=== PATIENT | male | born 1975 | race Caucasian/White ===

== ENCOUNTER 2024-03-22 13:14 | Inpatient (IN) | payer MEDICAID, SELFPAY ==
[2024-03-22 13:17] VITALS: BP 132/90; PULSE 85; RESP 18; TEMP 36.4; O2SAT 98; BMI 31.1
--- NOTE | 2024-03-22 14:04 | EKG12_ITS ---
Test Reason : ANXIETY Blood Pressure : */* mmHG Vent. Rate : 77 BPM Atrial Rate : 77 BPM P-R Int : 158 ms QRS Dur : 138 ms QT Int : 406 ms P-R-T Axes : 52 11 18 degrees QTcB Int : 459 ms Normal sinus rhythm Right bundle branch block Abnormal ECG Confirmed by Chris Momin ([id number]), newspaper copy editor GISELLE BOLIVAR ([id number]) on 03/24/2024 10:59:37 AM Referred By: Confirmed By: Chris Momin
--- NOTE | 2024-03-22 14:14 | EX.ED.DYSGE1 ---
HPI History of Present Illness Chief Complaint: General Illness Narrative Narrative: Patient is a 48-year-old male with past medical history of hypercholesteremia, GERD, asthma who presents to the emergency department with a chief complaint of difficulty swallowing. According to the patient and for member bedside they note that he lives in [facility] and on he went to orange picker a 50 pound cat litter bag and states that he is normally able to do so but was unable to do this at that point in time. He states that later in the day he went to an urgent care/emergency department down the area and they gave him a Z-Alberto and steroids for his asthma. They state that ever since then he has had difficulty swallowing including the even water. He they state that he is able to do so but is difficult and he has to take very small sips and small bites of food. Patient denies any blood thinning medications denies any cardiac history denies any strokes. [facility] Medical History (Updated 03/22/24 @ 16:[address] Richard Cifuentes DO) Anxiety Non-smoker Asthma Migraines Depression Home Medications ?Medication ?Instructions ?Recorded ?Last Taken ?Type cetirizine 10 mg tablet (Allergy 10 mg PO DAILY 03/22/24 Unknown History Relief (cetirizine)) citalopram 20 mg tablet 20 mg PO DAILY 03/22/24 Unknown History esomeprazole magnesium 20 mg 20 mg PO BID 03/22/24 Unknown History capsule,delayed release (Nexium 24HR) fluticasone propionate 50 2 spray intranasal DAILY 03/22/24 Unknown History mcg/actuation nasal spray,suspension meloxicam 7.5 mg tablet 7.5 mg PO DAILY 03/22/24 Unknown History methylprednisolone 4 mg tablets in 4 mg PO DAILY 03/22/24 Unknown History a dose pack mometasone-formoterol HFA 100 2 puff inhalation BID 03/22/24 Unknown History mcg-5 mcg/actuation aerosol inhaler (Dulera) simvastatin 40 mg tablet 40 mg PO DAILY 03/22/24 Unknown History Allergy/AdvReac Type Severity Reaction Status Date / Time acetaminophen (From Tylenol) Allergy Other Verified 03/22/24 13:17 Social History Smoking Status: Unknown if ever smoked ROS ROS ED ROS Narrative Constitutional: Denies any headaches, fevers, chills, lightness, dizziness Eyes, ears, nose, throat: Complains of difficulty swallowing as noted above denies change in vision double vision blurry vision Cardiovascular: Denies chest pain or palpitations Respiratory: Denies coughing wheezing shortness of breath Abdomen: Denies abdominal pain nausea vomit diarrhea : Denies any urinary symptoms Neurological: Complains of weakness and numbness Musculoskeletal: Denies back pain Skin: Denies rashes or lesions EXAM Physical Exam Narrative Exam Narrative: General: Patient lying in bed rest comfortably did not appear to be acute distress Head: Atraumatic, normocephalic Eyes: PERRL bilateral, EOMI bilateral, no conjunctival injection noted Neck: Soft, supple, trachea midline Cardiovascular: Regular rate and rhythm no murmurs gallops rubs noted Respiratory: Clear to auscultation bilaterally no rales rhonchi or wheezes noted Abdomen: Soft, nondistended, nontender to palpation, bowel sounds present x 4 Extremities: +5/5 strength noted in the bilateral upper extremities, +4/5 strength noted in the bilateral lower extremities, no pedal edema on exam, radial pulses +2/4 in the bilateral upper extremities Neurological: Patient following commands knew that he was at the hospital and the year is 2023. NIH of 0 GCS 15 Skin: Warm, dry, intact Const Vital Signs: 03/22/24 13:17 03/22/24 15:20 03/22/24 15:56 Temperature 97.6 F L 98.6 F Temperature Source Oral Pulse Rate 85 78 84 Respiratory Rate 18 18 14 Blood Pressure 132/90 H 137/85 H 140/88 H Blood Pressure Mean 104 102 105 Pulse Ox 98 99 99 Oxygen Delivery Method Room Air Room Air MDM MDM MDM Narrative Medical decision making narrative: Patient is a 48-year-old male who presents to the emergency department chief complaint of difficulty swallowing. Patient will have a workup performed here on the differential diagnose includes but not limited to ischemic stroke, esophageal web, esophageal stricture although feel these are less likely as he has not had any difficulty with food intake prior to this past week. Patient is not a tenecteplase candidate nor a LVO candidate as his symptoms started on Which was 03/17/2024. Once workup is obtained reviewed he will be reevaluated. Patient CBC was significant for leukocytosis of 17,000, this could be reactive secondary to him currently being on steroids, hemoglobin of 16, platelet count was 491. Patient sodium was noted be normal at 136, potassium normal at 4.3, creatinine normal at 0.99. Patient's AST and ALT were 9 and 29 respectively, lipase normal at 47. Patient's chest x-ray reviewed by myself and by radiology which showed no acute cardiopulmonary abnormality. Patient CT head and brain without contrast showed no acute intracranial abnormality. Patient's EKG was reviewed and independently interpreted by myself which showed sinus rhythm with a rate of 77 bpm and evidence of right bundle branch block no previous EKG to compare to. At this point time given the patient's difficulty with swallowing and his weakness he had on this past week do feel the patient will warrant admission to the hospital for further workup. I will discuss case with hospitalist for admission. After several conversations with the patient and family at bedside he is agreeable to staying here in the hospital. I reached back out to the hospitalist and discussed case with her and Dr. Major will accept the patient for admission. Patient will be given aspirin here in the emergency department. Patient was notified all question concerns answered bedside. Lab Data Labs: Laboratory Results - last 24 hr 03/22/24 03/22/24 14:20 15:40 WBC 17.2 H RBC 5.76 Hgb 16.0 Hct 48.7 MCV 84.5 MCH 27.8 MCHC 32.9 RDW Std Deviation 36.7 RDW Coeff of Jenny 12.1 Plt Count 491 H MPV 10.6 Immature Gran % (Auto) 0.600 Neut % (Auto) 78.4 H Lymph % (Auto) 14.2 L [place] % (Auto) 6.3 Eos % (Auto) 0.2 Baso % (Auto) 0.3 Absolute Neuts (auto) 13.5 H Absolute Lymphs (auto) 2.44 Nucleated RBC % 0 Sodium 136 Potassium 4.3 Chloride 103 Carbon Dioxide 28.0 Anion Gap 6 BUN 18 Creatinine 0.99 Estim Creat Clear Calc 85.16 Est GFR (MDRD) Af Amer 103 Est GFR (MDRD) Non-Af 85 BUN/Creatinine Ratio 18.1 Glucose 114 H Calcium 9.5 Total Bilirubin 0.60 AST 9 L ALT 29 Alkaline Phosphatase 115 Total Protein 7.9 Albumin 4.3 Globulin 3.6 Albumin/Globulin Ratio 1.2 Lipase 47 Urine Color Yellow Urine Clarity Sl. Cloudy Urine pH 6.5 Ur Specific [place] 1.015 Urine Protein 30 H Urine Glucose (UA) Normal Urine Ketones 5 H Urine Occult Blood Negative Urine Nitrite Negative Urine Bilirubin Negative Urine Urobilinogen 1 H Ur Leukocyte Esterase Negative Radiography Diagnostic Testing: Clinical Impression(s) from Imaging Studies Brain CT 03/22/24 14:45 IMPRESSION: No acute intracranial abnormality. Electronically Signed: Casey Mullins MD at 15:14 EST , Chest X-Ray 03/22/24 14:50 IMPRESSION: No acute cardiopulmonary abnormality. Electronically Signed: Casey Mullins MD at 15:15 EST , Discharge Plan Triage Chief Complaint: General Illness ED Provider: Richard Cifuentes Dx/Rx/DC Orders Clinical Impression: Dysphagia Prescriptions: No Action cetirizine [Allergy Relief (cetirizine)] 10 mg tablet 10 mg PO DAILY simvastatin 40 mg tablet 40 mg PO DAILY meloxicam 7.5 mg tablet 7.5 mg PO DAILY citalopram 20 mg tablet 20 mg PO DAILY methylprednisolone 4 mg tablets,dose pack 4 mg PO DAILY fluticasone propionate 50 mcg/actuation spray,suspension 2 spray INTRANASAL DAILY esomeprazole magnesium [Nexium 24HR] 20 mg capsule,delayed release(DR/EC) 20 mg PO BID Dulera 100-5 mcg/actuation HFA aerosol inhaler 2 puff INHALATION BID Primary Care Provider: Care Physician,No Primary Referrals: Care Physician,No Primary [Primary Care Provider] - Print Language: Uzbek Disposition Disposition: [facility]
[2024-03-22 14:29] LABS: Absolute Lymphocyte Count 2.44 X10^3/uL (0.83-4.51); Absolute Neutrophil Count 13.5 X10^3/uL (2.0-7.7); Basophil# 0.06 X10^3/uL; Basophil% 0.3 % (0-1); Eosinophil# 0.04 X10^3/uL; Eosinophils% 0.2 % (0-5); Hematocrit 48.7 % (40-54); Lymphocyte # 2.44 X10^3/ul (0.83-4.51); Lymphocyte % 14.2 % (19-41); Mean Corp Hgb Conc 32.9 g/dL (32-36); Mean Corpuscular Hgb 27.8 pg (27.0-32.0); Mean Corpuscular Volume 84.5 fL (80-94); Mean Platelet Vol. 10.6 fl (6.2-12.0); Monocyte# 1.08 X10^3/uL; Monocyte% 6.3 % (0-10); NRBC Flagged by Analyzer 0 % (0-5); Neutrophil # 13.51 X10^3/uL (2.7-7.7); Neutrophil % 78.4 % (47-70); Platelet Count 491 K/mm3 (150-450); RBC Distribution Width CV 12.1 % (11.6-14.6); RBC Distribution Width SD 36.7 fl (35.1-43.9); Red Blood Count 5.76 M/mm3 (4.6-6.2); White Blood Count 17.2 K/mm3 (4.4-11.0)
--- NOTE | 2024-03-22 14:36 | ED.RN ---
pt anxious for CT scan, got order for ativan and then pt refused.
--- NOTE | 2024-03-22 14:45 | CT_ITS ---
EXAM: CT HEAD WITHOUT INTRAVENOUS CONTRAST CLINICAL INDICATION: difficulty swallowing TECHNIQUE: Multiple axial images were obtained of the head without intravenous contrast. This CT exam was performed using one or more of the following dose reduction techniques: automated exposure control, adjustment of the mA and/or kV according to patient size, and/or use of iterative reconstruction technique. COMPARISON: No relevant prior studies available. FINDINGS: BRAIN AND EXTRA-AXIAL SPACES: Normal. Normal brain attenuation. No intra- or extra-axial hemorrhage. No acute infarct. No intracranial mass or mass effect. There is preservation of the garrido/white matter interface. Posterior fossa structures are unremarkable. Ventricles are appropriate for age. No hydrocephalus. Basal cisterns are patent. BONES/JOINTS: Normal calvarium. SINUSES: No acute sinusitis. MASTOID AIR CELLS: Normal. Clear. CT/Brain/Head without Contrast IMPRESSION: No acute intracranial abnormality. Electronically Signed: Casey Mullins MD at 15:14 EST ,
--- NOTE | 2024-03-22 14:50 | RAD_ITS ---
EXAM: XR CHEST, 2 VIEWS CLINICAL INDICATION: difficulty swallowing TECHNIQUE: Frontal and lateral views of the chest. COMPARISON: No relevant prior studies available. FINDINGS: LUNGS AND PLEURAL SPACES: Normal. No consolidation or edema. No pneumothorax. No effusion. HEART: Normal heart size. MEDIASTINUM: Calcified mediastinal lymph node. BONES/JOINTS: No acute abnormality. RAD/Chest PA and Lateral IMPRESSION: No acute cardiopulmonary abnormality. Electronically Signed: Casey Mullins MD at 15:15 EST ,
[2024-03-22 15:00] LABS: ALB/GLOB Ratio 1.2 RATIO (0.9-2.4); AST(SGOT) 9 U/L (15-37); Alanine Aminotransfer ALT/SGPT 29 U/L (16-61); Albumin, Serum 4.3 g/dL (3.2-5.0); Alkaline Phosphatase 115 U/L (45-117); Anion Gap 6 (5-15); BUN 18 mg/dL (7-18); BUN/Creat Ratio 18.1 RATIO (10-20); Calcium,Total 9.5 mg/dL (8.5-10.1); Chloride 103 mmol/L (98-107); Creatinine, Serum 0.99 mg/dL (0.70-1.30); EST Glomerular Filtration Rate 85 mL/min (>60); Est Glom Filt Rate - Afr Amer 103 mL/min (>60); Estimated Creatinine Clearance 85.16 ml/min; Globulin 3.6 g/dL (2.2-4.2); Glucose 114 mg/dL (74-106); Lipase 47 U/L (13-75); Potassium 4.3 mmol/L (3.5-5.1); Protein, Total 7.9 g/dL (6.4-8.2); Sodium Level 136 mmol/L (136-145)
[2024-03-22 15:20] VITALS: BP 137/85; PULSE 78; RESP 18; O2SAT 99
--- NOTE | 2024-03-22 15:27 | ED.RN ---
sister states pt not wanting to stay overnight. Informed physician who is now at bedside discussing with patient.
[2024-03-22] MEDS: 0.9% Normal Saline (1000mL) 1,000 ML 999 ML IV (15:36)
[2024-03-22 15:45] LABS: Squamous Epithelial Cells - UA 0 SEEN /hpf (0-5); White Blood Cells 0 SEEN /hpf (0-5)
[2024-03-22 15:56] VITALS: BP 140/88; PULSE 84; RESP 14; TEMP 37; O2SAT 99
[2024-03-22 15:58] LABS: Color, Urine Yellow (Yellow); Glucose, Dipstick Normal (Normal); Ketone-Dipstick 5 mg/dl (Negative); Leukocyte Esterase-Dipstick Negative /ul (Negative); Nitrite-Dipstick Negative (Negative); Occult Blood-Urine Negative /ul (Negative); Protein-Dipstick 30 mg/dl (Negative); Specific Gravity, Urine 1.015 (1.002-1.030); Urine Bilirubin Dipstick Negative (Negative); Urine Clarity Sl. Cloudy (Clear); Urine Urobilinogen 1 mg/dl (Normal); Urine pH 6.5 (5.0 - 8.0)
[2024-03-22 16:43] LABS: Bacteria 1+ /hpf (None Seen); Mucous, Urine RARE /hpf (<or=2+); Red Blood Cells-Urine 0-5 SEEN /hpf (0-5)
[2024-03-22] MEDS: Aspirin 325 MG Tablet PO (16:53)
--- NOTE | 2024-03-22 18:00 | PCM.HP.STD ---
HPI - General General Date of Admission: 03/22/24 Date of Service: 03/22/24 Chief Complaint: Generalized weakness, difficulty swallowing HPI Narrative DIANA SNELL, is a 48 M with history of depression and anxiety, GERD, asthma who presented [facility] ED 03/22/2024 due to difficulty swallowing and feeling weak all over. History primarily provided by family member at bedside as patient very vague also very slow to respond. Reportedly patient since beginning of last week has had difficulty swallowing and can barely eat or drink anything (both solids and liquids), has also been talking slowly per family member and has been weak all over. Last week patient went to shrimp picker a 50 pound bag of cat litter and he did so with 1 arm and threw it over the shoulder and then he felt pain in his shoulder, sometime after that is when he had worsening of his symptoms and he also has had some constipation. Patient was seen in the ED in [place] twice since that time and they thought that maybe he had an asthma exacerbation gave him a Medrol Dosepak and a Z-Alberto but this is changed out of the patient's symptoms. In the ED he had a white blood cell count of 17.2 but he is on steroids and workup otherwise thus far unremarkable however given patient's severe difficulty with swallowing impacting his ability to maintain nutrition hospitalist contacted for admission. Patient evaluated at bedside, patient does not have any focal complaints and reports he feels weak all over and also feels decreased sensation diffusely, verified multiple times that patient's complaints were not focal and generalized and they were indeed. Patient denies any fevers, he is not having any significant chest pain or significant shortness of breath, no productive cough. Is having some fatigue, difficulty swallowing with solids and liquids, constipation, feels like he has difficulty emptying his bladder but no burning on urination. Also is having some memory difficulty and this is all different from baseline. Patient did start a new depression pill on Thursday however symptoms started before this and did not seem to impact at this 1 where another per family member. Of note patient denies any tobacco, drug, alcohol use [facility] Medical History Anxiety Asthma Depression Migraines Non-smoker Home Medications ?Medication ?Instructions ?Recorded ?Last Taken ?Type cetirizine 10 mg tablet (Allergy 10 mg PO DAILY 03/22/24 Unknown History Relief (cetirizine)) citalopram 20 mg tablet 20 mg PO DAILY 03/22/24 Unknown History esomeprazole magnesium 20 mg 20 mg PO BID 03/22/24 Unknown History capsule,delayed release (Nexium 24HR) fluticasone propionate 50 2 spray intranasal DAILY 03/22/24 Unknown History mcg/actuation nasal spray,suspension meloxicam 7.5 mg tablet 7.5 mg PO DAILY 03/22/24 Unknown History methylprednisolone 4 mg tablets in 4 mg PO DAILY 03/22/24 Unknown History a dose pack mometasone-formoterol HFA 100 2 puff inhalation BID 03/22/24 Unknown History mcg-5 mcg/actuation aerosol inhaler (Dulera) simvastatin 40 mg tablet 40 mg PO DAILY 03/22/24 Unknown History Allergy/AdvReac Type Severity Reaction Status Date / Time acetaminophen (From Tylenol) Allergy Other Verified 03/22/24 13:17 Social History Smoking Status: Unknown if ever smoked ROS ROS Narrative General: Denies fever/chills, does feel fatigued HENT: No significant nasal congestion EYES: Some possible bilateral blurring over the vision over period of time Resp: No productive cough or significant shortness of breath Cardiac: Denies chest pain GI: Possibly some constipation, no vomiting : Feels there is some urinary hesitancy Extremity: Denies swelling MSK: Generalized weakness Neuro: Feels some decreased sensation all over his body Heme: Denies any bleeding or bruising Skin: Denies rashes Psychiatric: Does have depression and anxiety Vital Signs Vital Signs Vital Signs: 03/22/24 13:17 03/22/24 15:20 03/22/24 15:56 Temperature 97.6 F L 98.6 F Temperature Source Oral Pulse Rate 85 78 84 Respiratory Rate 18 18 14 Blood Pressure 132/90 H 137/85 H 140/88 H Blood Pressure Mean 104 102 105 Pulse Ox 98 99 99 Oxygen Delivery Method Room Air Room Air Weight Weight: 79.605 kg Body Mass Index (BMI) 31.1 Physical Exam Narrative General: Patient awake but slow to respond and does not always answer my question directly HEENT: Atraumatic, patient able to close eyes and raise eyebrows and talk and stick out tongue when asked to smile he said he cannot but he was able to move his mouth and it seemed this was more of a reluctance to do so Eyes: Anicteric, normal conjunctiva, extraocular movements grossly intact Neck: Supple Respiratory: Clear to auscultation bilaterally, normal respiratory effort Cardiovascular: Regular rate and rhythm GI: Soft, little bit tender in lower abdomen without rebound, guarding, rigidity Extremities: No edema Musculoskeletal: Moving all extremities, did have slight decrease strength on the right arm that he hurt when he was lifting cat litter but 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 Neuro: No overt focal neurological deficits however patient had difficulty participating in neuroexam, under shot on [id number] mildly bilaterally Skin: No rashes appreciated Psych: Attempts to be cooperative but slow to respond Results Lab / Micro Data 03/22/24 14:20 03/22/24 14:20 Labs: Laboratory Results - last 24 hr 03/22/24 14:20: WBC 17.2 H, RBC 5.76, Hgb 16.0, Hct 48.7, MCV 84.5, MCH 27.8, MCHC 32.9, RDW Std Deviation 36.7, RDW Coeff of Jenny 12.1, Plt Count 491 H, MPV 10.6, Immature Gran % (Auto) 0.600, Neut % (Auto) 78.4 H, Lymph % (Auto) 14.2 L, [place] % (Auto) 6.3, Eos % (Auto) 0.2, Baso % (Auto) 0.3, Absolute Neuts (auto) 13.5 H, Absolute Lymphs (auto) 2.44, Nucleated RBC % 0, Sodium 136, Potassium 4.3, Chloride 103, Carbon Dioxide 28.0, Anion Gap 6, BUN 18, Creatinine 0.99, Estim Creat Clear Calc 85.16, Est GFR (MDRD) Af Amer 103, Est GFR (MDRD) Non-Af 85, BUN/Creatinine Ratio 18.1, Glucose 114 H, Calcium 9.5, Total Bilirubin 0.60, AST 9 L, ALT 29, Alkaline Phosphatase 115, Total Protein 7.9, Albumin 4.3, Globulin 3.6, Albumin/Globulin Ratio 1.2, Lipase 47 03/22/24 15:40: Urine Color Yellow, Urine Clarity Sl. Cloudy, Urine pH 6.5, Ur Specific [place] 1.015, Urine Protein 30 H, Urine Glucose (UA) Normal, Urine Ketones 5 H, Urine Occult Blood Negative, Urine Nitrite Negative, Urine Bilirubin Negative, Urine Urobilinogen 1 H, Ur Leukocyte Esterase Negative, Urine RBC 0-5 SEEN, Urine WBC 0 SEEN, Ur Squamous Epith Cells 0 SEEN, Urine Bacteria 1+, Urine Mucus RARE Imaging Radiology Impression Brain CT 03/22/24 14:45 IMPRESSION: No acute intracranial abnormality. Electronically Signed: Casey Mullins MD at 15:14 EST Reading Location ID and State: [facility] / [place] Tel , Service support , Chest X-Ray 03/22/24 14:50 IMPRESSION: No acute cardiopulmonary abnormality. Electronically Signed: Casey Mullins MD at 15:15 EST , Assessment & Plan Assessment/Plan (1) Dysphagia: PLAN: Plan #Dysphagia -Unclear etiology, patient reports dysphagia to both solids and liquids and sister is significant concern for him being able to maintain his nutrition -N.p.o. -Speech eval -GI consult -Will change PPI to IV -Hold home meloxicam #Generalized weakness -Patient with generalized weakness and some decrease sensation throughout -Slight decreased strength in right arm but he reports that he hurt this when he lifted the 50 pound bag of cat litter but there is otherwise nothing focal on exam -Will check B12, magnesium, folate, TSH, thiamine -UA not overtly infectious, calcium within normal limits, patient not anemic -Vitally stable -Elevated white blood cell count suspected to be due to Medrol Dosepak the patient was put on for ?asthma however patient denies any current or previous symptoms -PT/OT -Given the fact the patient has complaints of generalized weakness and generalized decreased sensation suspect something more along the lines of metabolic cause of his symptoms and have much lower suspicion for CVA so hold off on MRI of head at this time #Urinary hesitance -Patient reports he has difficulty emptying his bladder -Will check postvoid to verify patient is not retaining urine # Asthma -Continue home inhalers # Leukocytosis -Patient has been on steroids suspect this is the cause -Patient does not have any other focal signs or symptoms that would point to an infectious cause #Depression/anxiety -Continue home medications #GERD -Changing PPI to IV #DVT ppx: Lovenox subcu Silvia Major MD Charges/Coding Visit Charges Inpatient E&M: 49124 Init Hosp L2
[2024-03-22 18:23] VITALS: BMI 30.1
--- NOTE | 2024-03-22 18:47 | CASEMGMT ---
Care Management Face to Face with patient for initial transition planning/care coordination assessment in the ED.? This bond writer introduced self and role at [facility]. Patient lying in bed, alert and oriented. Patient's sister, Yanique, was present at bedside. Patient gave permission to speak with his sister present, but patient was adamant about not wanting the door shut. Patient's sister helped answer questions due to stating that patient was having trouble talking/swallowing. Patient's sister also reported patient having trouble with hearing and patient lack of eating over the last few days. Admitting Diagnosis: weakness, difficulty swallowing Other diagnosis history: hypercholesteremia, asthma PCP: patient reported having a PCP, but he could not recall the name (patient is from out of the area, so no provider lists were given). Patient's sister reported patient does not often see his PCP. Specialists: none Preferred Pharmacy: [facility] Pharmacy Insurance: [employer] Prescription Benefit:?yes Living Will/HPOA: none. Patient's sister stated that patient is not old enough for one of those. SW educated that any age could use advance directives and the acute SW team could help patient if he changed his mind. LNOK: daughter, Rhiannon, and granddaughter. Living Arrangements: lives alone, single level home with steps to enter. Transportation: patient drives. DME: patient reports having grab bars and his father's cane. Patient's sister reports he does not use the cane, but has it for sentimental reasons. HHC: no current or past HHC. SNF/Rehab: no current or past SNF/rehab. Community Resources: none Behavioral Health History: patient reportedly has anxiety and depression. Patient reportedly takes medication, but does not see a counselor. Due to patient living out of the area, no provider list was given). Patient goals: Patient wishes to discharge home, but patient's sister states patient could go to her home should he need it. Patient has been visiting with his sister for the holiday. Patient states he has no further needs or concerns at this time. Disposition Plan: admission to acute; RN RENE/SW team to follow for discharge planning needs that may arise. Magdalene Elmore, ANALYSIS CONSULTANT, CHEESE SPECIALIST
[2024-03-22 20:02] VITALS: BP 136/84; PULSE 73; RESP 16; TEMP 36.8; O2SAT 96
[2024-03-22 20:40] LABS: Vitamin B12 342 pg/mL (211-911)
[2024-03-22 20:49] LABS: Ferritin 243 ng/mL (26-388); Iron 37 ug/dL (65-175); Iron Binding Capacity,Total 377 ug/dL (250-450); Magnesium 2.6 mg/dL (1.6-2.6); PERCENT IRON SATURATION 9.8 % (15.0-55.0)
[2024-03-22] MEDS: Pantoprazole Sodium 40 MG in 0.9% Normal Saline (100mL MB+) 100 ML 330 MG IV (21:34)
[2024-03-22] MEDS: 0.9% Normal Saline (500mL Bag) 500 ML 15 ML IV (21:35)
[2024-03-22] MEDS: 0.9% Saline Lock 10 ML Syringe IV (21:35)
[2024-03-23] VITALS (10 sets, daily range): BP systolic 130–139; BP diastolic 80–92; PULSE 71–88; RESP 12–18; TEMP 36.4–37; O2SAT 94–98
[2024-03-23] MEDS: Albuterol 2.5 MG/3 ML VIAL.NEB. INHALATION ×3 (07:40→19:49)
[2024-03-23] MEDS: Budesonide Respules 0.5 MG/2 ML AMPUL.NEB. INHALATION ×2 (07:40→19:49)
[2024-03-23 07:41] LABS: Absolute Lymphocyte Count 2.67 X10^3/uL (0.83-4.51); Absolute Neutrophil Count 9.2 X10^3/uL (2.0-7.7); Basophil# 0.08 X10^3/uL; Basophil% 0.6 % (0-1); Eosinophil# 0.11 X10^3/uL; Eosinophils% 0.8 % (0-5); Hematocrit 47.4 % (40-54); Hemoglobin 15.5 g/dL (13.0-16.5); Lymphocyte # 2.67 X10^3/ul (0.83-4.51); Lymphocyte % 20.2 % (19-41); Mean Corp Hgb Conc 32.7 g/dL (32-36); Mean Corpuscular Hgb 28.4 pg (27.0-32.0); Mean Platelet Vol. 11.6 fl (6.2-12.0); Monocyte% 8.3 % (0-10); NRBC Flagged by Analyzer 0 % (0-5); Neutrophil # 9.19 X10^3/uL (2.7-7.7); Neutrophil % 69.6 % (47-70); Platelet Count 452 K/mm3 (150-450); RBC Distribution Width CV 12.4 % (11.6-14.6); RBC Distribution Width SD 39.3 fl (35.1-43.9); Red Blood Count 5.45 M/mm3 (4.6-6.2); White Blood Count 13.2 K/mm3 (4.4-11.0)
[2024-03-23 08:29] LABS: ALB/GLOB Ratio 1.2 RATIO (0.9-2.4); AST(SGOT) 14 U/L (15-37); Alanine Aminotransfer ALT/SGPT 27 U/L (16-61); Albumin, Serum 3.9 g/dL (3.2-5.0); Alkaline Phosphatase 103 U/L (45-117); Anion Gap 7 (5-15); BUN 18 mg/dL (7-18); BUN/Creat Ratio 19.7 RATIO (10-20); Calcium,Total 9.2 mg/dL (8.5-10.1); Chloride 104 mmol/L (98-107); Creatinine, Serum 0.92 mg/dL (0.70-1.30); EST Glomerular Filtration Rate 94 mL/min (>60); Est Glom Filt Rate - Afr Amer 113 mL/min (>60); Estimated Creatinine Clearance 90.26 ml/min; Globulin 3.3 g/dL (2.2-4.2); Glucose 90 mg/dL (74-106); Protein, Total 7.2 g/dL (6.4-8.2); Sodium Level 136 mmol/L (136-145)
[2024-03-23] MEDS: Pantoprazole Sodium 40 MG in 0.9% Normal Saline (100mL MB+) 100 ML 330 MG IV ×2 (08:52→22:56)
[2024-03-23] MEDS: Enoxaparin 40 MG/0.4 ML Syringe SC (08:53)
[2024-03-23] MEDS: 0.9% Saline Lock 10 ML Syringe IV ×2 (08:53→22:56)
[2024-03-23] MEDS: Fluticasone 0.05% 1 SPRAY NASAL.SRY 2 SPRAY NASAL (08:54)
--- NOTE | 2024-03-23 09:02 | PCM.PN.HOSP ---
Reason for Visit Reason for Visit: Diagnoses Dysphagia, unspecified (03/22/24) Subjective Subjective Patient is a 48-year-old gentleman with history of learning disability who presented with progressive generalized weakness and difficulty swallowing Objective Data Objective Data Vital Signs: Vital Signs Temp Pulse Resp BP Pulse Ox O2 Del Method 98.6 F 84 13 137/89 H 97 Room Air 03/23/24 08:48 03/23/24 08:48 03/23/24 08:48 03/23/24 08:48 03/23/24 08:48 03/23/24 08:48 Oxygen Delivery Method Room Air Weight: 77.111 kg Body Mass Index (BMI) 30.1 Intake & Output: Intake and Output for Last 24 Hours 03/21/24 03/22/24 03/23/24 23:59 23:59 23:59 Intake Total 1120 / 1120 Output Total 650 / 650 Balance 470 / 470 Lab / Micro Data 03/23/24 05:12 03/23/24 05:12 Labs: Laboratory Results - last 24 hr 03/22/24 14:20: WBC 17.2 H, RBC 5.76, Hgb 16.0, Hct 48.7, MCV 84.5, MCH 27.8, MCHC 32.9, RDW Std Deviation 36.7, RDW Coeff of Jenny 12.1, Plt Count 491 H, MPV 10.6, Immature Gran % (Auto) 0.600, Neut % (Auto) 78.4 H, Lymph % (Auto) 14.2 L, [place] % (Auto) 6.3, Eos % (Auto) 0.2, Baso % (Auto) 0.3, Absolute Neuts (auto) 13.5 H, Absolute Lymphs (auto) 2.44, Nucleated RBC % 0, Sodium 136, Potassium 4.3, Chloride 103, Carbon Dioxide 28.0, Anion Gap 6, BUN 18, Creatinine 0.99, Estim Creat Clear Calc 85.16, Est GFR (MDRD) Af Amer 103, Est GFR (MDRD) Non-Af 85, BUN/Creatinine Ratio 18.1, Glucose 114 H, Calcium 9.5, Magnesium 2.6, Iron 37 L, TIBC 377, Iron Saturation 9.8 L, Ferritin 243, Total Bilirubin 0.60, AST 9 L, ALT 29, Alkaline Phosphatase 115, Total Protein 7.9, Albumin 4.3, Globulin 3.6, Albumin/Globulin Ratio 1.2, Lipase 47, Vitamin B12 342, Folate 16.10, TSH 1.750 03/22/24 15:40: Urine Color Yellow, Urine Clarity Sl. Cloudy, Urine pH 6.5, Ur Specific [place] 1.015, Urine Protein 30 H, Urine Glucose (UA) Normal, Urine Ketones 5 H, Urine Occult Blood Negative, Urine Nitrite Negative, Urine Bilirubin Negative, Urine Urobilinogen 1 H, Ur Leukocyte Esterase Negative, Urine RBC 0-5 SEEN, Urine WBC 0 SEEN, Ur Squamous Epith Cells 0 SEEN, Urine Bacteria 1+, Urine Mucus RARE 03/23/24 05:12: WBC 13.2 H, RBC 5.45, Hgb 15.5, Hct 47.4, MCV 87.0, MCH 28.4, MCHC 32.7, RDW Std Deviation 39.3, RDW Coeff of Jenny 12.4, Plt Count 452 H, MPV 11.6, Immature Gran % (Auto) 0.500, Neut % (Auto) 69.6, Lymph % (Auto) 20.2, [place] % (Auto) 8.3, Eos % (Auto) 0.8, Baso % (Auto) 0.6, Absolute Neuts (auto) 9.2 H, Absolute Lymphs (auto) 2.67, Nucleated RBC % 0, Sodium 136, Potassium 4.0, Chloride 104, Carbon Dioxide 25.0, Anion Gap 7, BUN 18, Creatinine 0.92, Estim Creat Clear Calc 90.26, Est GFR (MDRD) Af Amer 113, Est GFR (MDRD) Non-Af 94, BUN/Creatinine Ratio 19.7, Glucose 90, Calcium 9.2, Total Bilirubin 1.00, AST 14 L, ALT 27, Alkaline Phosphatase 103, Total Protein 7.2, Albumin 3.9, Globulin 3.3, Albumin/Globulin Ratio 1.2 Radiography Diagnostic Testing: Radiology Impression Brain CT 03/22/24 14:45 IMPRESSION: No acute intracranial abnormality. Electronically Signed: Casey Mullins MD at 15:14 EST , Chest X-Ray 03/22/24 14:50 IMPRESSION: No acute cardiopulmonary abnormality. Electronically Signed: Casey Mullins MD at 15:15 EST , Physical Exam Narrative GENERAL: Flat affect and slow to respond HEENT: Atraumatic; normocephalic EYES; Anicteric, Normal Conjunctiva NECK; supple, normal thyroid, RESPIRATORY: Diminished to auscultation CARDIOVASCULAR: Regular S1 S2, GI: soft, normoactive bowel sounds, : No Renal angle tenderness; EXTREMITIES: No edema, no clubbing, MUSCULOSKELETAL: no muscle wasting NEURO: Awake; no lateralizing signs. SKIN: No Rash PSYCH; Flat affect Assessment & Plan Assessment/Plan (1) Dysphagia: PLAN: Plan Patient is a 48-year-old gentleman with history of learning disability who presented with progressive generalized weakness and difficulty swallowing 1. Dysphagia ? To both solids and liquids. Patient has been admitted to regular nursing floor. Patient was kept n.p.o. after midnight started on PPI with consultation placed to both speech therapy as well as GI 2. GERD ? Patient is on PPI did continue 3. Generalized osteoarthritis ? Patient is on meloxicam held given his presentation 4. Mild intermittent asthma ? Currently not in exacerbation aerosol treatment as needed 5. Learning disability ? Patient has disability and is cared for by his sister at home 6. Leukocytosis ? No infectious etiology will monitor 7. Depression with anxiety Patient was on Zoloft recently switched to citalopram continue 8. DVT prophylaxis ? On enoxaparin Time spent in the patient's overall evaluation,decision-making process, review of diagnostic data, adjustment of management, discussion with other providers, nursing nursing and ancillary staff involved in patient's care documentation, 36 Minutes Charges/Coding Visit Charges Inpatient E&M: 67755 Subs Hosp L2
--- NOTE | 2024-03-23 12:48 | EX.PCM.CON.G ---
HPI Consult Data Date of Consult: 03/23/24 HPI Narrative Reason for Consultation: Dysphagia HPI Narrative: DIANA SNELL, is a48 M with history of depression and anxiety, GERD, asthma who presented [facility] ED 03/22/2024 due to difficulty swallowing and feeling weak all over. History primarily provided by family member at bedside as patient very vague also very slow to respond. Reportedly patient since beginning of last week has had difficulty swallowing and can barely eat or drink anything (both solids and liquids), has also been talking slowly per family member and has been weak all over. Last week patient went to potato picker a 50 pound bag of cat litter and he did so with 1 arm and threw it over the shoulder and then he felt pain in his shoulder, sometime after that is when he had worsening of his symptoms and he also has had some constipation. Patient was seen in the ED in [place] twice since that time and they thought that maybe he had an asthma exacerbation gave him a Medrol Dosepak and a Z-Alberto but this is changed out of the patient's symptoms. In the ED he had a white blood cell count of 17.2 but he is on steroids and workup otherwise thus far unremarkable however given patient's severe difficulty with swallowing impacting his ability to maintain nutrition hospitalist contacted for admission. Patient denies any fevers, he is not having any significant chest pain or significant shortness of breath, no productive cough. He is having some fatigue, difficulty swallowing with solids and liquids, constipation, feels like he has difficulty emptying his bladder but no burning on urination. Also is having some memory difficulty and this is all different from baseline. Patient did start a new depression pill on Thursday however symptoms started before this and did not seem to impact at this 1 where another per family member. Of note patient denies any tobacco, drug, alcohol use [facility] Medical History Anxiety Non-smoker Asthma Migraines Depression Home Medications ?Medication ?Instructions ?Recorded ?Last Taken ?Type cetirizine 10 mg tablet (Allergy 10 mg PO DAILY 03/22/24 Unknown History Relief (cetirizine)) citalopram 20 mg tablet 20 mg PO DAILY 03/22/24 Unknown History esomeprazole magnesium 20 mg 20 mg PO BID 03/22/24 Unknown History capsule,delayed release (Nexium 24HR) fluticasone propionate 50 2 spray intranasal DAILY 03/22/24 Unknown History mcg/actuation nasal spray,suspension meloxicam 7.5 mg tablet 7.5 mg PO DAILY 03/22/24 Unknown History methylprednisolone 4 mg tablets in 4 mg PO DAILY 03/22/24 Unknown History a dose pack mometasone-formoterol HFA 100 2 puff inhalation BID 03/22/24 Unknown History mcg-5 mcg/actuation aerosol inhaler (Dulera) simvastatin 40 mg tablet 40 mg PO DAILY 03/22/24 Unknown History Allergy/AdvReac Type Severity Reaction Status Date / Time acetaminophen (From Tylenol) Allergy Other Verified 03/22/24 13:17 Social History Smoking Status: Unknown if ever smoked ROS ROS Narrative General: Denies fever/chills, does feel fatigued HENT: No significant nasal congestion EYES: Some possible bilateral blurring over the vision over period of time Resp: No productive cough or significant shortness of breath Cardiac: Denies chest pain GI: Possibly some constipation, no vomiting : Feels there is some urinary hesitancy Extremity: Denies swelling MSK: Generalized weakness Neuro: Feels some decreased sensation all over his body Heme: Denies any bleeding or bruising Skin: Denies rashes Psychiatric: Does have depression and anxiety Physical Exam Narrative GENERAL: Flat affect and slow to respond HEENT: Atraumatic; normocephalic EYES; Anicteric, Normal Conjunctiva NECK; supple, normal thyroid, RESPIRATORY: Diminished to auscultation CARDIOVASCULAR: Regular S1 S2, GI: soft, normoactive bowel sounds, : No Renal angle tenderness; EXTREMITIES: No edema, no clubbing, MUSCULOSKELETAL: no muscle wasting NEURO: Awake; no lateralizing signs. SKIN: No Rash PSYCH; Flat affect Medical Records Data Medical Nutrition Assessment Dietitian: Malnutrition Criteria Met Start: 03/23/24 16:45 Freq: Status: Active Protocol: Document 03/23/24 16:45 RMA (Rec: 03/23/24 16:45 RMA [id number]) Nutrition Malnutrition Evidence of Malnutrition Exists Yes Malnutrition (severe): Acute Illness/Injury Evidenced By Suboptimal Energy Intake ( Severe),Weight Loss (Severe) Intake Problem Inadequate Oral Intake Etiology related to swallowing difficulty and inadequate oral intake Signs/Symptoms as evidenced by ~8% unintentional weight loss Status Active Problem Clinical Problem Acute Disease or Injury Related Malnutrition Etiology severe protein-calorie malnutrition in the context of acute condition related to swallowing difficulty and inadequate oral intake Signs/Symptoms as evidenced by ~8% unintentional weight loss x 2- 3 months and PO meeting less than 50% estimated nutrition needs x 2 weeks Status Active Problem Recommendation Dietitian Recommendations/Changes Continue regular diet with consistency/texture as per TOBACCO WEIGHER . Will d/c ensure plus HP w/ medpass per pt preference. Will add 240mL ovalles ensure clear w/ breakfast for tolerance. Add ONS as pt willing once swallowing ability and oral intake better established. Lab / Micro Data 03/24/24 05:34 03/24/24 05:34 Labs: Laboratory Results - last 24 hr 03/24/24 05:34: WBC 13.8 H, RBC 5.67, Hgb 16.0, Hct 48.3, MCV 85.2, MCH 28.2, MCHC 33.1, RDW Std Deviation 37.3, RDW Coeff of Jenny 12.2, Plt Count 442, MPV 11.1, Immature Gran % (Auto) 0.600, Neut % (Auto) 71.3 H, Lymph % (Auto) 18.6 L, [place] % (Auto) 8.0, Eos % (Auto) 1.0, Baso % (Auto) 0.5, Absolute Neuts (auto) 9.8 H, Absolute Lymphs (auto) 2.56, Nucleated RBC % 0, Sodium 135 L, Potassium 4.2, Chloride 102, Carbon Dioxide 26.0, Anion Gap 7, BUN 17, Creatinine 0.92, Estim Creat Clear Calc 90.26, Est GFR (MDRD) Af Amer 113, Est GFR (MDRD) Non-Af 93, BUN/Creatinine Ratio 18.5, Glucose 104, Calcium 9.3, Phosphorus 4.4, Magnesium 2.6 Assessment & Plan Assessment/Plan (1) Dysphagia: PLAN: Plan 48-year-old with dysphagia of unclear etiology, patient reports dysphagia to both solids and liquids and sister is significant concern for him being able to maintain his nutrition speech eval is pending. We will perform an upper endoscopy to evaluate his upper GI tract. He was explained alternatives, risk and benefits collect any bleeding, function, sepsis, perforation, need for return to . He will have an ASA of 3. Charges/Coding Visit Charges Inpatient E&M: 34804 Init Hosp L3
--- NOTE | 2024-03-23 14:21 | NURSING ---
1410-PT OFF UNIT VIA BED FOR BARIUM SWALLOW. COUSIN W/PT
[2024-03-23] MEDS: Citalopram 20 MG Tablet PO (15:00)
--- NOTE | 2024-03-23 15:10 | SP.MBSS_ITS ---
Modified Barium Swallow Patient Information Study Date: 03/23/24 Study Time: 14:15 Diagnosis: Dysphagia R13.10 Referring Physician: Moi Cummins Current Diet Ordered: Puree / Thin liquids Dentition: Edentulous Mental Status: Impaired Respiratory Status: Oxygenating on Room Air Penetration-Aspiration Scale Penetration-Aspiration Scale: OBJECTIVE ASSESSMENT OF SWALLOW FUNCTION (QUANTITATIVE ? PER TRIAL): PENETRATION / ASPIRATION SCALE (SAWANT): 1 = does not enter airway 2 = enters airway/above vocal folds/ejected 3 = enters airway/above vocal folds/not ejected 4 = enters airway/contacts vocal folds/ejected 5 = enters airway/contacts vocal folds/not ejected 6 = enters airway/below vocal folds/ejected 7 = enters airway/below vocal folds/not ejected despite effort 8 = enters airway/below vocal folds/no effort VIDEOFLOROSCOPIC SCALE SCORE (SAWANT): Grade I = aspiration of material that has penetrated into the laryngeal vestibule, intact cough reflex Grade II = aspiration < 10 % of the bolus, intact cough reflex Grade III = aspiration of < 10 % of the bolus, reduced cough reflex or aspiration of > 10 % of the bolus, intact cough reflex Grade IV = aspiration of > 10 % of the bolus, reduced cough reflex Penetration-Aspiration Scale Score Thin Liquid via teaspoon: Result: 1= does not enter airway Thin Liquid via teaspoon Trial 2: Result: 2= enter airway/above vocal folds/ejected Thin Liquid via large single sip: cup: Result: 1= does not enter airway Diagnosis/Impression Diagnosis: Oropharyngeal dysphagia R13.12 Recommendations Diet: Mechanical Soft Textures (Minced and Moist textures - IDDSI Level 5) and Thin Liquids Comment: Meds crushed in applesauce Compensatory Strategies: Small Bites, Small Sips, Slow Rate, Alternate bites/solids and sips/liquids (1 sip after every 1-2 bites), Sitting upright and Remain sitting upright for 30 minutes after PO intake Supervision: 1:1 Close Supervision (Family ok to supervise if present) Recommended Referrals: GI Consult (Recommend proceed w/ GI consult (already placed)) Education Completed: 1. Described result of evaluation., 2. Pt understands evaluation & agrees with goals and treatment plan., 4. Family/caregivers understand evaluation & agree w/ goals & tx plan. and 7. Pt requires further edu cation on strategies & risks. Comment: CUTTING AND BONING SUPERVISOR messaged Dr. Cummins following MBSS to inform him of recommendations. In message, CUTTING AND BONING SUPERVISOR recommended consideration of neuro work up due to onset of dysphagia, slowed speech, confusion, and flat affect. Status Active ST Patient: Active Contact Information [facility] Speech Therapy:: Arleen Diaz M.A. [facility]-CUTTING AND BONING SUPERVISOR? Speech-Language Pathologist?? [facility] [address] [place] [address]? [email or web address]?? [phone]
--- NOTE | 2024-03-23 15:10 | ST.MBS ---
Modified Barium Swallow Patient Information Study Date: 03/23/24 Study Time: 14:15 Direct Billable Minutes: 120 Total Minutes procedure & reportin Diagnosis: Dysphagia R13.10 Referring Physician: Moi Cummins Reason for Referral: Objectively assess swallow function, assess risk for aspiration, and determine recommendations for least restrictive diet textures and compensatory strategies to improve safety of swallow. Medical History: PMH: GERD, Anxiety, Asthma, Depression, Migraines, Non-smoker. Pt presented to [facility] ED 03/22/24 w/ dysphagia and generalized weakness. Pt and family report that he is talking more slowly and is slow to respond. They reported ~1.5 weeks ago he went to fern picker a 50 pound bag of cat litter and he did so with 1 arm and threw it over the shoulder and then he felt pain in his shoulder, sometime after that is when he had worsening of his symptoms. He was referred for ST consult to further assess swallowing difficulty. BSE was completed today and recommended puree textures / thin liquids w/ plan for MBSS to further assess risk/presence of aspiration. Of note, pt had very slowed oral motor movements, flat affect, generalized weakness, weak volitional cough. He had coughing w/ liquids and was hesitant for trials of solids at bedside. See BSE for full details. Current Diet Ordered: Puree / Thin liquids Dentition: Edentulous Mental Status: Impaired Respiratory Status: Oxygenating on Room Air Penetration-Aspiration Scale Penetration-Aspiration Scale: OBJECTIVE ASSESSMENT OF SWALLOW FUNCTION (QUANTITATIVE ? PER TRIAL): PENETRATION / ASPIRATION SCALE (SAWANT): 1 = does not enter airway 2 = enters airway/above vocal folds/ejected 3 = enters airway/above vocal folds/not ejected 4 = enters airway/contacts vocal folds/ejected 5 = enters airway/contacts vocal folds/not ejected 6 = enters airway/below vocal folds/ejected 7 = enters airway/below vocal folds/not ejected despite effort 8 = enters airway/below vocal folds/no effort VIDEOFLOROSCOPIC SCALE SCORE (SAWANT): Grade I = aspiration of material that has penetrated into the laryngeal vestibule, intact cough reflex Grade II = aspiration < 10 % of the bolus, intact cough reflex Grade III = aspiration of < 10 % of the bolus, reduced cough reflex or aspiration of > 10 % of the bolus, intact cough reflex Grade IV = aspiration of > 10 % of the bolus, reduced cough reflex Penetration-Aspiration Scale Score Thin Liquid via teaspoon: Result: 1= does not enter airway Thin Liquid via teaspoon Trial 2: Result: 2= enter airway/above vocal folds/ejected Thin Liquid via large single sip: cup: Result: 1= does not enter airway Thin Liquid via sequential sips: cup: Result: 5= enters airways/contacts vocal folds/not ejected Comment: Esophageal screen - Complete clearance. [place] Thick Liquid via large single sip: cup: Result: 1= does not enter airway Pudding via teaspoon: Result: 1= does not enter airway Comment: Esophageal screen - Retention in the lower esophagus w/ retrograde flow. Thin Liquid via single sip: straw: Result: 1= does not enter airway Comment: Esophageal screen - Complete clearance. Peaches coated in barium pudding: Result: 1= does not enter airway Comment: E [employer]ERCE ARCHITECT cued pt to chew peaches (2 diced peaches provided) to mix w/ barium pudding. Pt swallowed each peach whole, 1 at a time, without chewing. 1/4 Cookie: Result: 1= does not enter airway Comment: Esophageal screen - Retention throughout middle and lower esophagus. Thin liquid wash was provided during esophageal screen, which fully cleared the retention. Oral Phase Labial Seal: No Labial Escape Tongue Control During Bolus Hold: Posterior escape of greater than half of bolus Bolus Preparation/Mastication: Minimal chewing/mashing with majority of bolus unchewed (peaches) Bolus Transport/Lingual Motion: Slowed tongue motion Oral Residue: Majority of bolus remaining (piecemeal deglutition of cookie) Pharyngeal Phase Initiation of Pharyngeal Swallow: Bolus head at posterior laryngeal surgace of epiglottis Soft Palate Elevation: Trace column of contrast/air between soft palate and pharyngeal wall Laryngeal Elevation: Partial superior movement thyroid cart/partial apprx aryt-epig petiole Anterior Hyoid Excursion: Partial anterior movement Epiglottic Movement: Complete inversion Laryngeal Vestibule Closure at Height of Swallow: Incomplete; narrow column of air/contrast in laryngeal vestibule Pharyngeal Stripping Wave: Present - complete Pharyngoesophageal Segment Opening: Complete distension and complete duration; no obstruction of flow Tongue Base Retraction: Trace column of contrast between tongue base & post. pharyngeal wall Pharyngeal Residue: Trace residue within or on pharyngeal structures Esophageal Phase Esophageal Clearance: Esophageal retention w/ retrograde flow below pharyngoesophageal seg. Diagnosis/Impression Diagnosis: Moderate oropharyngeal dysphagia R13.12; Esophageal dysphagia R13.14 Impression: The oral phase is primarily marked by... -No mastication of peaches despite cues to chew. He did chew cookie trial w/ mod verbal cues; however, small pieces of cookie appeared un-chewed. -Slowed tongue motion. -Piecemeal deglutition of pudding and cookie. -Decreased bolus control w/ posterior loss of >1/2 of liquids to the posterior surface of the epiglottis prior to swallow onset. The pharyngeal phase is primarily marked by... -Mildly delayed swallow onset. -Decreased airway closure during the swallow due to decreased laryngeal elevation and anterior hyoid excursion. -Laryngeal penetration of sequential sips of thin liquids to the vocal folds w/o full ejection and no reflexive cough. The patient may be at risk for silent aspiration. The esophageal phase is primarily marked by... -Retention of pudding in the lower esophagus w/ retrograde flow, which fully cleared w/ liquid wash. -Retention of cookie in middle and lower esophagus, which also cleared w/ liquid wash. Recommendations Diet: Mechanical Soft Textures (Minced and Moist textures - IDDSI Level 5) and Thin Liquids Comment: Meds crushed in applesauce Compensatory Strategies: Small Bites, Small Sips, Slow Rate, Alternate bites/solids and sips/liquids (1 sip after every 1-2 bites), Sitting upright and Remain sitting upright for 30 minutes after PO intake Supervision: 1:1 Close Supervision (Family ok to supervise if present) Recommend Repeat Modified Barium Swallow: TBD Need for Skilled Speech Therapy Services: Yes Comment: -Train the patient in use of strategies to decrease risk for aspiration and reflux aspiration. -Ongoing assessment of diet tolerance of recommended textures. Trial soft and bite size textures w/ E [employer]CE ARCHITECT in upcoming session to consider diet advancement if pt is demonstrating adequate mastication at bedside. -Train the patient in oropharyngeal exercise program to improve oral motor strength/coordination, as well as swallow onset and airway closure(lingual resistance/coordination exercises, Yogesh, CTAR). Recommended Referrals: GI Consult (Recommend proceed w/ GI consult (already placed)) Education Completed: 1. Described result of evaluation., 2. Pt understands evaluation & agrees with goals and treatment plan., 4. Family/caregivers understand evaluation & agree w/ goals & tx plan. and 7. Pt requires further education on strategies & risks. Comment: E COMMERCE ARCHITECT messaged Dr. Cummins following MBSS to inform him of recommendations. In message, E COMMERCE ARCHITECT recommended consideration of neuro work up due to dysphagia, slowed speech, confusion, and flat affect. Status Active ST Patient: Active Contact Information [facility] Speech Therapy:: Arleen Diaz M.A. CCC-E COMMERCE ARCHITECT? Speech-Language Pathologist?? [facility] [address] [place] [address]? [email or web address]?? [phone]
--- NOTE | 2024-03-23 18:28 | NURSING ---
pt c/o not feeling right, denies knowing his name, his sister, etc. cannot explain why or approx when this began. he thinks he became a little sob, and he felt something pop but cannot say where or when. dr matute notified and orders received.
--- NOTE | 2024-03-23 19:26 | NURSING ---
183-sister did come up to desk to let this nurse know that pt is now aware of who he is and she, she states that she thinks it was a panic attack
[2024-03-23] MEDS: Tamsulosin HCl 0.4 MG Capsule PO (22:50)
[2024-03-23] MEDS: MELATONIN 3 MG TABLET PO (22:52)
[2024-03-23] MEDS: Atorvastatin Calcium 20 MG Tablet PO (22:53)
[2024-03-24] VITALS (15 sets, daily range): BP systolic 97–140; BP diastolic 68–87; PULSE 74–94; RESP 12–18; TEMP 36.3–37.1; O2SAT 95–99
[2024-03-24 06:10] LABS: Absolute Lymphocyte Count 2.56 X10^3/uL (0.83-4.51); Absolute Neutrophil Count 9.8 X10^3/uL (2.0-7.7); Basophil# 0.07 X10^3/uL; Basophil% 0.5 % (0-1); Eosinophil# 0.14 X10^3/uL; Hematocrit 48.3 % (40-54); Lymphocyte # 2.56 X10^3/ul (0.83-4.51); Lymphocyte % 18.6 % (19-41); Mean Corp Hgb Conc 33.1 g/dL (32-36); Mean Corpuscular Hgb 28.2 pg (27.0-32.0); Mean Corpuscular Volume 85.2 fL (80-94); Mean Platelet Vol. 11.1 fl (6.2-12.0); NRBC Flagged by Analyzer 0 % (0-5); Neutrophil # 9.81 X10^3/uL (2.7-7.7); Neutrophil % 71.3 % (47-70); Platelet Count 442 K/mm3 (150-450); RBC Distribution Width CV 12.2 % (11.6-14.6); RBC Distribution Width SD 37.3 fl (35.1-43.9); Red Blood Count 5.67 M/mm3 (4.6-6.2); White Blood Count 13.8 K/mm3 (4.4-11.0)
[2024-03-24 06:48] LABS: Anion Gap 7 (5-15); BUN 17 mg/dL (7-18); BUN/Creat Ratio 18.5 RATIO (10-20); Calcium,Total 9.3 mg/dL (8.5-10.1); Chloride 102 mmol/L (98-107); Creatinine, Serum 0.92 mg/dL (0.70-1.30); EST Glomerular Filtration Rate 93 mL/min (>60); Est Glom Filt Rate - Afr Amer 113 mL/min (>60); Estimated Creatinine Clearance 90.26 ml/min; Glucose 104 mg/dL (74-106); Magnesium 2.6 mg/dL (1.6-2.6); Phosphorus 4.4 mg/dL (2.5-4.9); Potassium 4.2 mmol/L (3.5-5.1); Sodium Level 135 mmol/L (136-145)
--- NOTE | 2024-03-24 07:13 | CON.PCM.UR_ITS ---
HPI Consult Data Date of Consult: 03/24/24 HPI Narrative Reason for Consultation: Episode of urinary retention HPI Narrative: DIANA SNELL, is a 48 male who is in the hospital and while in the hospital he is having some difficulty with urination he was prescribed Flomax which is working better for him the nurses report he is able to urinate recommend continue with Flomax on discharge and he can follow-up with his primary care physician after discharge. [facility] Medical History (Updated 03/22/24 @ 16:[address] Richard Cifuentes, ) Anxiety Non-smoker Asthma Migraines Depression Home Medications ?Medication ?Instructions ?Recorded ?Last Taken ?Type cetirizine 10 mg tablet (Allergy 10 mg PO DAILY 03/22/24 Unknown History Relief (cetirizine)) citalopram 20 mg tablet 20 mg PO DAILY 03/22/24 Unknown History esomeprazole magnesium 20 mg 20 mg PO BID 03/22/24 Unknown History capsule,delayed release (Nexium 24HR) fluticasone propionate 50 2 spray intranasal DAILY 03/22/24 Unknown History mcg/actuation nasal spray,suspension meloxicam 7.5 mg tablet 7.5 mg PO DAILY 03/22/24 Unknown History methylprednisolone 4 mg tablets in 4 mg PO DAILY 03/22/24 Unknown History a dose pack mometasone-formoterol HFA 100 2 puff inhalation BID 03/22/24 Unknown History mcg-5 mcg/actuation aerosol inhaler (Dulera) simvastatin 40 mg tablet 40 mg PO DAILY 03/22/24 Unknown History Allergy/AdvReac Type Severity Reaction Status Date / Time acetaminophen (From Tylenol) Allergy Other Verified 03/22/24 13:17 Social History Smoking Status: Unknown if ever smoked Medical Records Data Medical Nutrition Assessment Dietitian: Malnutrition Criteria Met Start: 03/23/24 16:45 Freq: Status: Active Protocol: Document 03/23/24 16:45 RMA (Rec: 03/23/24 16:45 RMA [id number]) Nutrition Malnutrition Evidence of Malnutrition Exists Yes Malnutrition (severe): Acute Illness/Injury Evidenced By Suboptimal Energy Intake ( Severe),Weight Loss (Severe) Intake Problem Inadequate Oral Intake Etiology related to swallowing difficulty and inadequate oral intake Signs/Symptoms as evidenced by ~8% unintentional weight loss Status Active Problem Clinical Problem Acute Disease or Injury Related Malnutrition Etiology severe protein-calorie malnutrition in the context of acute condition related to swallowing difficulty and inadequate oral intake Signs/Symptoms as evidenced by ~8% unintentional weight loss x 2- 3 months and PO meeting less than 50% estimated nutrition needs x 2 weeks Status Active Problem Recommendation Dietitian Recommendations/Changes Continue regular diet with consistency/texture as per SAFETY NET MAKER . Will d/c ensure plus HP w/ medpass per pt preference. Will add 240mL ovalles ensure clear w/ breakfast for tolerance. Add ONS as pt willing once swallowing ability and oral intake better established. Lab / Micro Data 03/24/24 05:34 03/24/24 05:34 Labs: Laboratory Results - last 24 hr 03/23/24 05:12: WBC 13.2 H, RBC 5.45, Hgb 15.5, Hct 47.4, MCV 87.0, MCH 28.4, MCHC 32.7, RDW Std Deviation 39.3, RDW Coeff of Jenny 12.4, Plt Count 452 H, MPV 11.6, Immature Gran % (Auto) 0.500, Neut % (Auto) 69.6, Lymph % (Auto) 20.2, [place] % (Auto) 8.3, Eos % (Auto) 0.8, Baso % (Auto) 0.6, Absolute Neuts (auto) 9.2 H, Absolute Lymphs (auto) 2.67, Nucleated RBC % 0, Sodium 136, Potassium 4.0, Chloride 104, Carbon Dioxide 25.0, Anion Gap 7, BUN 18, Creatinine 0.92, Estim Creat Clear Calc 90.26, Est GFR (MDRD) Af Amer 113, Est GFR (MDRD) Non-Af 94, BUN/Creatinine Ratio 19.7, Glucose 90, Calcium 9.2, Total Bilirubin 1.00, A ST 14 L, ALT 27, Alkaline Phosphatase 103, Total Protein 7.2, Albumin 3.9, Globulin 3.3, Albumin/Globulin Ratio 1.2 03/24/24 05:34: WBC 13.8 H, RBC 5.67, Hgb 16.0, Hct 48.3, MCV 85.2, MCH 28.2, MCHC 33.1, RDW Std Deviation 37.3, RDW Coeff of Jenny 12.2, Plt Count 442, MPV 11.1, Immature Gran % (Auto) 0.600, Neut % (Auto) 71.3 H, Lymph % (Auto) 18.6 L, [place] % (Auto) 8.0, Eos % (Auto) 1.0, Baso % (Auto) 0.5, Absolute Neuts (auto) 9.8 H, Absolute Lymphs (auto) 2.56, Nucleated RBC % 0, Sodium 135 L, Potassium 4.2, Chloride 102, Carbon Dioxide 26.0, Anion Gap 7, BUN 17, Creatinine 0.92, Estim Creat Clear Calc 90.26, Est GFR (MDRD) Af Amer 113, Est GFR (MDRD) Non-Af 93, BUN/Creatinine Ratio 18.5, Glucose 104, Calcium 9.3, Phosphorus 4.4, Magnesium 2.6
[2024-03-24] MEDS: Albuterol 2.5 MG/3 ML VIAL.NEB. INHALATION (07:33)
[2024-03-24] MEDS: Budesonide Respules 0.5 MG/2 ML AMPUL.NEB. INHALATION ×2 (07:33→19:27)
[2024-03-24] MEDS: 0.9% Saline Lock 10 ML Syringe IV ×2 (08:25→21:50)
[2024-03-24] MEDS: Pantoprazole Sodium 40 MG in 0.9% Normal Saline (100mL MB+) 100 ML 330 MG IV ×2 (08:26→21:50)
[2024-03-24] MEDS: Fluticasone 0.05% 1 SPRAY NASAL.SRY 2 SPRAY NASAL (08:27)
--- NOTE | 2024-03-24 08:39 | PCM.PN.HOSP ---
Reason for Visit Reason for Visit: Diagnoses Dysphagia, unspecified (03/22/24) Subjective Subjective Patient underwent modified barium swallow and speech therapy recommended minced and moist discharge/thin liquids under direct supervision. Also recommended for GI consultation which has been placed on admission Objective Data Objective Data Vital Signs: Vital Signs Temp Pulse Resp BP Pulse Ox O2 Del Method 98.1 F 87 12 128/85 H 97 Room Air 03/24/24 08:21 03/24/24 08:21 03/24/24 08:21 03/24/24 08:21 03/24/24 08:21 03/24/24 08:21 Oxygen Delivery Method Room Air Weight: 77.11 kg Body Mass Index (BMI) 30.1 Intake & Output: Intake and Output for Last 24 Hours 03/22/24 03/23/24 03/24/24 23:59 23:59 23:59 Intake Total 1120 / 1120 280 / 280 473 / 473 Output Total 650 / 650 250 / 250 600 / 600 Balance 470 / 470 30 / 30 -127 / -127 Medical Nutrition Assessment Dietitian: Malnutrition Criteria Met Start: 03/23/24 16:45 Freq: Status: Active Protocol: Document 03/23/24 16:45 RMA (Rec: 03/23/24 16:45 RMA [id number]) Nutrition Malnutrition Evidence of Malnutrition Exists Yes Malnutrition (severe): Acute Illness/Injury Evidenced By Suboptimal Energy Intake ( Severe),Weight Loss (Severe) Intake Problem Inadequate Oral Intake Etiology related to swallowing difficulty and inadequate oral intake Signs/Symptoms as evidenced by ~8% unintentional weight loss Status Active Problem Clinical Problem Acute Disease or Injury Related Malnutrition Etiology severe protein-calorie malnutrition in the context of acute condition related to swallowing difficulty and inadequate oral intake Signs/Symptoms as evidenced by ~8% unintentional weight loss x 2- 3 months and PO meeting less than 50% estimated nutrition needs x 2 weeks Status Active Problem Recommendation Dietitian Recommendations/Changes Continue regular diet with consistency/texture as per WOOD 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 Will d/c ensure plus HP w/ medpass per pt preference. Will add 240mL ovalles ensure clear w/ breakfast for tolerance. Add ONS as pt willing once swallowing ability and oral intake better established. Lab / Micro Data 03/24/24 05:34 03/24/24 05:34 Labs: Laboratory Results - last 24 hr 03/24/24 05:34: WBC 13.8 H, RBC 5.67, Hgb 16.0, Hct 48.3, MCV 85.2, MCH 28.2, MCHC 33.1, RDW Std Deviation 37.3, RDW Coeff of Jenny 12.2, Plt Count 442, MPV 11.1, Immature Gran % (Auto) 0.600, Neut % (Auto) 71.3 H, Lymph % (Auto) 18.6 L, [place] % (Auto) 8.0, Eos % (Auto) 1.0, Baso % (Auto) 0.5, Absolute Neuts (auto) 9.8 H, Absolute Lymphs (auto) 2.56, Nucleated RBC % 0, Sodium 135 L, Potassium 4.2, Chloride 102, Carbon Dioxide 26.0, Anion Gap 7, BUN 17, Creatinine 0.92, Estim Creat Clear Calc 90.26, Est GFR (MDRD) Af Amer 113, Est GFR (MDRD) Non-Af 93, BUN/Creatinine Ratio 18.5, Glucose 104, Calcium 9.3, Phosphorus 4.4, Magnesium 2.6 Physical Exam Narrative GENERAL: Flat affect and slow to respond HEENT: Atraumatic; normocephalic EYES; Anicteric, Normal Conjunctiva NECK; supple, normal thyroid, RESPIRATORY: Diminished to auscultation CARDIOVASCULAR: Regular S1 S2, GI: soft, normoactive bowel sounds, : No Renal angle tenderness; EXTREMITIES: No edema, no clubbing, MUSCULOSKELETAL: no muscle wasting NEURO: Awake; no lateralizing signs. SKIN: No Rash PSYCH; Flat affect Assessment & Plan Assessment/Plan (1) Dysphagia: PLAN: Plan Patient is a 48-year-old gentleman with history of learning disability who presented with progressive generalized weakness and difficulty swallowing 1. Dysphagia ? To both solids and liquids. Patient has been admitted to regular nursing floor. Patient was kept n.p.o. after midnight started on PPI with consultation placed to both speech therapy as well as GI ? 03/24/2024; Patient underwent modified barium swallow and speech therapy recommended minced and moist discharge/thin liquids under direct supervision. Also recommended for GI consultation which has been placed on admission. Patient is scheduled to undergo EGD 2. GERD ? Patient is on PPI did continue 3. Generalized osteoarthritis ? Patient is on meloxicam held given his presentation 4. Mild intermittent asthma ? Currently not in exacerbation aerosol treatment as needed 5. Learning disability ? Patient has disability and is cared for by his sister at home 6. Leukocytosis ? No infectious etiology will monitor 7. Depression with anxiety Patient was on Zoloft recently switched to citalopram continue 8. BPH with lower urinary obstructive symptoms -Patient was seen in consultation by Dr Wilson with urology recommended for patient be treated with tamsulosin 9. DVT prophylaxis ? On enoxaparin Time spent in the patient's overall evaluation,decision-making process, review of diagnostic data, adjustment of management, discussion with other providers, nursing nursing and ancillary staff involved in patient's care documentation, 36 Minutes Charges/Coding Visit Charges Inpatient E&M: 96702 Subs Hosp L2
--- NOTE | 2024-03-24 12:30 | EGD_PTH ---
PATIENT: DIANA NSELL LOC: MS3 U#:[id number] AGE/SX: 48/M ROOM: RI311 RE03/22/[address]: Dr. Moi Cummins MD : 1975 BED: 1 DIS: 03/25/2024 SPEC #: [id number] RECD: 03/24/24 17:55 STATUS: HAWA REQ #: [id number] EBENEZER: 03/24/24 12:[address]: Mahad Crabtree DEPT: SURGICAL PATHOLOGY RECD BY: Crista Bahena ENTERED: 03/25/24 07:55 SP TYPE: EGD BIOPSY OTHR DR: MD Dr. Patricio Padilla MD Dr. Paige Pierce, MD Dr. Rahsaan Friend, DO No Primary Care Phys Tissues: Esophagus, NOS Procedures: Surgery Specimen Level IV Comments: @ Ordering doctor for SUIV edited from to @ by SHABBIR at 03/25/24 09 @ Submitting doctor edited from to @ by SHABBIR at 03/25/24919 HEADER OPERATION: EGD, biopsy, dilation PRE-OP DIAGNOSIS: Dysphagia TISSUE SUBMITTED: Random esophagus biopsy MICROSCOPIC DIAGNOSIS Esophagus, random biopsy: Fragments of benign squamous mucosa. No evidence of inflammation. . 03/28/2024 MICROSCOPIC DESCRIPTION Slides are reviewed. GROSS DESCRIPTION Received in fixative is one container labeled with the patient's name and designated Random esophagus biopsy. The specimen consists of multiple irregular fragments of light ramirez soft tissue that in aggregate measure 1.0 x 0.6 x 0.1 cm. The specimen is totally submitted in one cassette. Meg 03/25/2024 TC:5 CPT:32393
--- NOTE | 2024-03-24 12:43 | PRE.ANES_ITS ---
ASA Classification* ASA Classification ASA Classification: 3 Assessment & Plan Anesthesia* Anesthesia Assessment Anesthesia Assessment: Discussed sedation and/or anesthesia options, risks, benefits, and alternatives with patient/parents/legal guardian/POA. Questions invited. The patient/parents/legal guardian/POA seems to understand and agrees to proceed with anesthesia plan. Reviewed the physical assessment, medical history, allergy history and patient home medications list prior to surgery/procedure/anesthetic and documented any changes. Performed airway and anesthesia risk assessments. Anesthesia Type Anesthesia Type: MAC History Source History Obtained from:: Patient and Chart Anesthesia Focused Assessment* Temperature: 98.7 F Pulse Rate: 93 Blood Pressure: 140/83 Respiratory Rate: 16 Pulse Ox: 97 Oxygen Delivery Method: Room Air Airway Assessment Mouth opens: >3 cm Mallampati Score: III Teeth Condition: Missing (Patient is edentulous.) Neck Range of motion (ROM): Full ROM Focused Labs Anesthesia Preop lab: CBC WBC 13.8 K/mm3 (4.4-11.0) H 03/24/24 05:34 RBC 5.67 M/mm3 (4.6-6.2) 03/24/24 05:34 Hgb 16.0 g/dL (13.0-16.5) 03/24/24 05:34 Hct 48.3 % (40-54) 03/24/24 05:34 Plt Count 442 K/mm3 (150-450) 03/24/24 05:34 CHEMISTRY Potassium 4.2 mmol/L (3.5-5.1) 03/24/24 05:34 Sodium 135 mmol/L (136-145) L 03/24/24 05:34 Magnesium 2.6 mg/dL (1.6-2.6) 03/24/24 05:34 Phosphorus 4.4 mg/dL (2.5-4.9) 03/24/24 05:34 BUN 17 mg/dL (7-18) 03/24/24 05:34 Creatinine 0.92 mg/dL (0.70-1.30) 03/24/24 05:34 Glucose 104 mg/dL (74-106) 03/24/24 05:34 TSH 1.750 uIU/mL (0.358-3.740) 03/22/24 14:20 COAG Pre-Assessment Diagnosis/Proposed Procedure Planned Operative Procedure(s): Esophagogastroduodenoscopy Anesthesia History Anesthesia History - children's service supervisor: Anesthesia History - children's service supervisor Hx Hospitalization Any Problems With Anesthesia No 03/24/24 03:47 Cholinesterase deficiency No 03/24/24 03:47 You/Your Family Experience No 03/24/24 03:47 fever (hyperthermia) with Relationship Recent Exposure to Contagious No 03/24/24 03:47 Disease Does patient have nerve No 03/24/24 03:47 stimulator Patient instructed to have No 03/24/24 03:47 device shut off --Does patient have Pacemaker or ICD? When Was Last Pacemaker Check QUESTION #4 FULL TEXT: You/Your Family Experience fever (hyperthermia) with Anesthesia Last Oral Intake Last Oral intake: Last Oral Intake NPO since Meds taken in AM with sips of water? Meds patient instructed to take am of surgery Any additional information?: Yes NPO since: 00:00 PONV PONV - children's service supervisor: PONV - children's service supervisor Female HX of Motion Sickness HX of N/V After Surgery Non-Smoker Duration of Surgery greater than 60 minutes Number of Risk Factors PONV Score Height & Weight Height & Weight: Anesthesia: Height & Weight Height 5 ft 3 in 03/23/24 16:21 Weight: 77.11 kg 03/23/24 16:21 Body Mass Index (BMI) 30.1 03/22/24 18:23 Respiratory Assessment Respiratory Assessment - children's service supervisor: Respiratory Tract Infection Hx - children's service supervisor Hx Respiratory Tract Infection No 03/24/24 03:47 STOP Sleep Apnea STOP Sleep Apnea - children's service supervisor: STOP Sleep Apnea - children's service supervisor Hx Hypertension Hx Sleep Apnea CPAP BIPAP Do you snore loudly (louder than talking or can be heard Do you often feel tired/ fatigued/ sleepy during daytime? Has anyone observed you stop breathing during sleep? STOP Results QUESTION #5 FULL TEXT : Do you snore loudly (louder than talking or can be heard through closed doors)? Tobacco Use History Tobacco Use History - children's service supervisor: Tobacco Use History - children's service supervisor Tobacco Use Smoking Status Unknown if ever smoked 03/22/24 13:27 Hx Tobacco Use Years Smoking Packs Smoked per Day Smoking Cessation Date was within the last 15 years Hx Smoking Cessation Date Hx Smoking Cessation Counseling Hematologic Medial History Hematologic Hx - children's service supervisor: Hematologic Medical Hx - remediation bioanalytics consultant Hx of Blood Transfusion Hx of Transfusion in last 3 Months Date of Last Transfusion (if within last 3 months) Ever experience any problems with transfusion(s)? Specify any problems Hx of Preganancy in last 3 Months Nurse Filling Out Transfusion & Questions: Date: Time: Patient unable to answer at this time (ie. confused, unrespo /Reproduction History /Reproductive History - children's service supervisor: /Reproductive Hx- children's service supervisor Hx Now NA 03/24/24 03:47 Gestational Age (in weeks): EDC: Hx Hx Para Hx Section SAB Active Medications Active Medications: Current Medications Generic Name Dose Route Start Last Admin Trade Name Freq PRN Reason Stop Dose Admin Albuterol Sulfate 2.5 mg 03/22/24 18:29 Albuterol 2.5 Mg/3 Ml Vial.Neb. INHALATION Q2H PRN PRN SOB &/OR WHEEZING Albuterol Sulfate 2.5 mg 03/22/24 20:30 03/24/24 07:33 Albuterol 2.5 Mg/3 Ml Vial.Neb. INHALATION 2.5 mg Q6HWA.RT ROMMEL Administration Atorvastatin Calcium 20 mg 03/22/24 22:00 03/23/24 22:53 Atorvastatin Calcium 20 Mg Tablet PO 20 mg QHS ROMMEL Administration Budesonide 0.5 mg 03/22/24 20:30 03/24/24 07:33 Budesonide Respules 0.5 Mg/2 Ml Ampul.Neb. INHALATION 0.5 mg Q12H.RT ROMMEL Administration Citalopram Hydrobromide 20 mg 03/23/24 10:00 03/24/24 08:27 Citalopram 20 Mg Tablet PO Not Given DAILY ROMMEL Enoxaparin Sodium 40 mg 03/23/24 10:00 03/24/24 08:27 Enoxaparin 40 Mg/0.4 Ml Syringe SC Not Given DAILY ROMMEL Fluticasone Propionate 2 spray 03/23/24 10:00 03/24/24 08:27 Fluticasone 0.05% 1 Post Nasal.Sry NASAL 2 spray DAILY ROMMEL Administration Sodium Chloride 500 mls @ 15 mls/hr 03/22/24 18:23 03/24/24 05:07 IV Infused .[id number] PRN Infusion Saline Flush Sodium Chloride 500 mls @ 15 mls/hr 03/22/24 18:23 IV .[id number] PRN Additional IVPB Infusion Pantoprazole Sodium 40 mg/ 110 mls @ 330 mls/hr 03/22/24 22:00 03/24/24 08:50 Sodium Chloride IV Infused Q12 ROMMEL Infusion Melatonin 3 mg 03/22/24 18:29 03/23/24 22:52 Melatonin 3 Mg Tablet PO 3 mg QHS PRN PRN Administration INSOMNIA Senna/Docusate Sodium 2 tablet 03/22/24 18:29 Senna/Docusate Sodium 1 Tablet PO BID PRN PRN Constipation Sodium Chloride 10 - 40 ml 03/22/24 18:23 03/24/24 08:25 0.9% Saline Lock 10 Ml Syringe IV 10 ml UD PRN Administration SALINE FLUSH PFSH Medical History Anxiety Non-smoker Asthma Migraines Depression Home Medications ?Medication ?Instructions ?Recorded ?Last Taken ?Type cetirizine 10 mg tablet (Allergy 10 mg PO DAILY 03/22/24 Unknown History Relief (cetirizine)) citalopram 20 mg tablet 20 mg PO DAILY 03/22/24 Unknown History esomeprazole magnesium 20 mg 20 mg PO BID 03/22/24 Unknown History capsule,delayed release (Nexium 24HR) fluticasone propionate 50 2 spray intranasal DAILY 03/22/24 Unknown History mcg/actuation nasal spray,suspension meloxicam 7.5 mg tablet 7.5 mg PO DAILY 03/22/24 Unknown History methylprednisolone 4 mg tablets in 4 mg PO DAILY 03/22/24 Unknown History a dose pack mometasone-formoterol HFA 100 2 puff inhalation BID 03/22/24 Unknown History mcg-5 mcg/actuation aerosol inhaler (Dulera) simvastatin 40 mg tablet 40 mg PO DAILY 03/22/24 Unknown History Allergy/AdvReac Type Severity Reaction Status Date / Time acetaminophen (From Tylenol) Allergy Other Verified 03/22/24 13:17 Social History Smoking Status: Unknown if ever smoked Review of Systems (Anesthesia) ROS Narrative System reviewed and no additional complaints, except as documented.
--- NOTE | 2024-03-24 13:18 | OP.EGD_ITS ---
Patient Name: Patel Enamorado Procedure Date: 03/24/2024 12:52 PM Date of : 1975 Age: 48 Procedure: Upper GI endoscopy Indications: Dysphagia Providers: Mahad Crabtree DO Medicines: Monitored Anesthesia Care Patient Profile: This is a 48 year old male. Refer to note in patient chart for documentation of history and physical. Patient has symptoms of dysphagia with both liquids and solids. Complications: No immediate complications. Procedure: Pre-Anesthesia Assessment: - Prior to the procedure, a History and Physical was performed, and patient medications and allergies were reviewed. The patient is competent. The risks and benefits of the procedure and the sedation options and risks were discussed with the patient. All questions were answered and informed consent was obtained. Patient identification and proposed procedure were verified by the physician in the pre-procedure area. Mental Status Examination: alert and oriented. Airway Examination: normal oropharyngeal airway and neck mobility. Respiratory Examination: clear to auscultation. CV Examination: normal. Prophylactic Antibiotics: The patient does not require prophylactic antibiotics. Prior Anticoagulants: The patient has taken no anticoagulant or antiplatelet agents except for NSAID medication. ASA Grade Assessment: II - A patient with mild systemic disease. After reviewing the risks and benefits, the patient was deemed in satisfactory condition to undergo the procedure. The anesthesia plan was to use monitored anesthesia care (MAC). Immediately prior to administration of medications, the patient was re-assessed for adequacy to receive sedatives. The heart rate, respiratory rate, oxygen saturations, blood pressure, adequacy of pulmonary ventilation, and response to care were monitored throughout the procedure. The physical status of the patient was re-assessed after the procedure. After obtaining informed consent, the endoscope was passed under direct vision. Throughout the procedure, the patient's blood pressure, pulse, and oxygen saturations were monitored continuously. The gastroscope was introduced through the mouth, and advanced to the second part of duodenum. The upper GI endoscopy was accomplished without difficulty. The patient tolerated the procedure well. Scope In: 1:07:26 PM Scope Out: 1:12:29 PM Total Procedure Duration Time 0 hours 5 minutes 3 seconds Findings: One benign-appearing, intrinsic moderate stenosis was found 20 to 22 cm from the incisors. This stenosis measured 4 mm (inner diameter) x 5 cm (in length). The stenosis was traversed. A guidewire was placed and the scope was withdrawn. Dilation was performed with a Savary dilator with no resistance at 60 Fr. The dilation site was examined and showed moderate mucosal disruption. Estimated blood loss was minimal. Biopsies were taken with a cold forceps for histology. Verification of patient identification for the specimen was done. Estimated blood loss was minimal. No gross lesions were noted in the stomach. No gross lesions were noted in the first portion of the duodenum. Impression: - Benign-appearing esophageal stenosis. Dilated. Biopsied. - No gross lesions in the stomach. - No gross lesions in the first portion of the duodenum. Recommendation: - Return patient to hospital [facility] for ongoing care. - Advance diet as tolerated - advance as tolerated to resume previous diet. - Continue present medications. - Await pathology results. Procedure Code(s): --- Professional --- 05154, Esophagogastroduodenoscopy, flexible, transoral; with insertion of guide wire followed by passage of dilator(s) through esophagus over guide wire 01336, 59,51, Esophagogastroduodenoscopy, flexible, transoral; with biopsy, single or multiple CPT copyright 2021 [employer]. All rights reserved. The codes documented in this report are preliminary and upon vein access technician review may be revised to meet current compliance requirements. Mahad Crabtree DO 03/24/2024 1:18:21 PM This report has been signed electronically. Number of Addenda: 0 Note Initiated On: 03/24/2024 12:52 PM
--- NOTE | 2024-03-24 13:18 | OP.CCLET_ITS ---
03/24/2024 No Primary Care Physician Re : Upper GI endoscopy procedure for Patel Enamorado [facility] Care Physician This procedure was performed on March. My impressions and recommendations are as follows: Impressions : - Benign-appearing esophageal stenosis. Dilated. Biopsied. - No gross lesions in the stomach. - No gross lesions in the first portion of the duodenum. Recommendations : - Return patient to hospital [facility] for ongoing care. - Advance diet as tolerated - advance as tolerated to resume previous diet. - Continue present medications. - Await pathology results. My findings are described in the full procedure note, which is enclosed. If I can be of further assistance, please feel free to contact me at . Sincerely, Mahad Crabtree, 03/24/2024 1:18:21 PM This report has been signed electronically.
--- NOTE | 2024-03-24 13:24 | PCM.POST.ANE ---
Anesthesia: Postop Eval I Current Vital Signs Temperature: 98 F Pulse Rate: 89 Blood Pressure: 110/71 Respiratory Rate: 18 Pulse Ox: 98 Oxygen Delivery Method: Room Air Assessment Airway patent: Yes Spontaneous unlabored respirations: Yes Mental status: Asleep nausea: No Vomiting: No Anesthesia Complication: No Fluid Hydration Crystalloid volume administer (ml): 30 Total IV fluid infused: 30 Progress Note Anesthesia document: Postop Eval 1 completed: Yes
[2024-03-24] MEDS: Atorvastatin Calcium 20 MG Tablet PO (21:50)
[2024-03-25 02:00] VITALS: BP 144/95; PULSE 78; RESP 16; TEMP 36.6; O2SAT 97
[2024-03-25] MEDS: 0.9% Saline Lock 10 ML Syringe IV (02:29)
[2024-03-25] MEDS: Morphine 2 MG/ML Syringe IV (02:29)
[2024-03-25 04:59] LABS: Bacteria 0 SEEN /hpf (None Seen); Mucous, Urine 0 SEEN /hpf (<or=2+); Squamous Epithelial Cells - UA 0 SEEN /hpf (0-5)
[2024-03-25 05:19] LABS: Color, Urine Amber (Yellow); Glucose, Dipstick Normal (Normal); Ketone-Dipstick 5 mg/dl (Negative); Leukocyte Esterase-Dipstick 100 /ul (Negative); Nitrite-Dipstick Negative (Negative); Occult Blood-Urine 250 /ul (Negative); Protein-Dipstick 15 mg/dl (Negative); Urine Bilirubin Dipstick Negative (Negative); Urine Clarity Sl. Cloudy (Clear); Urine Urobilinogen 1 mg/dl (Normal)
[2024-03-25 06:30] LABS: Absolute Lymphocyte Count 2.49 X10^3/uL (0.83-4.51); Absolute Neutrophil Count 9.4 X10^3/uL (2.0-7.7); Basophil# 0.07 X10^3/uL; Basophil% 0.5 % (0-1); Eosinophil# 0.11 X10^3/uL; Eosinophils% 0.8 % (0-5); Hematocrit 48.4 % (40-54); Hemoglobin 15.7 g/dL (13.0-16.5); Lymphocyte # 2.49 X10^3/ul (0.83-4.51); Lymphocyte % 18.7 % (19-41); Mean Corp Hgb Conc 32.4 g/dL (32-36); Mean Corpuscular Hgb 28.1 pg (27.0-32.0); Mean Corpuscular Volume 86.6 fL (80-94); Mean Platelet Vol. 11.5 fl (6.2-12.0); Monocyte# 1.17 X10^3/uL; Monocyte% 8.8 % (0-10); NRBC Flagged by Analyzer 0 % (0-5); Neutrophil # 9.42 X10^3/uL (2.7-7.7); Neutrophil % 70.6 % (47-70); Platelet Count 431 K/mm3 (150-450); RBC Distribution Width CV 12.1 % (11.6-14.6); RBC Distribution Width SD 38.5 fl (35.1-43.9); Red Blood Count 5.59 M/mm3 (4.6-6.2); White Blood Count 13.3 K/mm3 (4.4-11.0)
[2024-03-25 06:52] LABS: Anion Gap 6 (5-15); BUN 20 mg/dL (7-18); BUN/Creat Ratio 19.6 RATIO (10-20); Calcium,Total 9.3 mg/dL (8.5-10.1); Chloride 102 mmol/L (98-107); Creatinine, Serum 1.02 mg/dL (0.70-1.30); EST Glomerular Filtration Rate 83 mL/min (>60); Est Glom Filt Rate - Afr Amer 100 mL/min (>60); Estimated Creatinine Clearance 81.41 ml/min; Glucose 85 mg/dL (74-106); Potassium 4.1 mmol/L (3.5-5.1); Sodium Level 136 mmol/L (136-145)
[2024-03-25 07:14] LABS: Red Blood Cells-Urine > 100 SEEN /hpf (0-5); White Blood Cells 25-50 SEEN /hpf (0-5)
[2024-03-25] MEDS: Budesonide Respules 0.5 MG/2 ML AMPUL.NEB. INHALATION (07:21)
[2024-03-25 07:22] VITALS: PULSE 82; RESP 16
--- NOTE | 2024-03-25 07:27 | PCM.PN.HOSP ---
Reason for Visit Reason for Visit: Diagnoses Dysphagia, unspecified (03/22/24) Subjective Subjective Patient underwent EGD by Dr. Crabtree the day prior was found to have a benign-appearing esophageal stenosis which was dilated. Patient has been started on soft mechanical diet which being advanced as tolerated. If patient tolerates his oral diet patient will be discharged home Objective Data Objective Data Vital Signs: Vital Signs Temp Pulse Resp BP Pulse Ox O2 Del Method 98 F 78 16 144/95 H 97 Room Air 03/25/24 02:00 03/25/24 02:00 03/25/24 02:00 03/25/24 02:00 03/25/24 02:00 03/25/24 02:00 Oxygen Delivery Method Room Air Weight: 77.11 kg Body Mass Index (BMI) 30.1 Intake & Output: Intake and Output for Last 24 Hours 03/23/24 03/24/24 03/25/24 23:59 23:59 23:59 Intake Total 280 / 280 693 / 693 Output Total 250 / 250 1950 / 1950 Balance -1257 / -1257 Medical Nutrition Assessment Dietitian: Malnutrition Criteria Met Start: 03/23/24 16:45 Freq: Status: Active Protocol: Document 03/23/24 16:45 RMA (Rec: 03/23/24 16:45 RMA [id number]) Nutrition Malnutrition Evidence of Malnutrition Exists Yes Malnutrition (severe): Acute Illness/Injury Evidenced By Suboptimal Energy Intake ( Severe),Weight Loss (Severe) Intake Problem Inadequate Oral Intake Etiology related to swallowing difficulty and inadequate oral intake Signs/Symptoms as evidenced by ~8% unintentional weight loss Status Active Problem Clinical Problem Acute Disease or Injury Related Malnutrition Etiology severe protein-calorie malnutrition in the context of acute condition related to swallowing difficulty and inadequate oral intake Signs/Symptoms as evidenced by ~8% unintentional weight loss x 2- 3 months and PO meeting less than 50% estimated nutrition needs x 2 weeks Status Active Problem Recommendation Dietitian Recommendations/Changes Continue regular diet with consistency/texture as per GLUED WOOD TESTER . Will d/c ensure plus HP w/ medpass per pt preference. Will add 240mL ovalles ensure clear w/ breakfast for tolerance. Add ONS as pt willing once swallowing ability and oral intake better established. Lab / Micro Data 03/25/24 05:16 03/25/24 05:16 Labs: Laboratory Results - last 24 hr 03/25/24 04:45: Urine Color Luisa, Urine Clarity Sl. Cloudy, Urine pH 5.0, Ur Specific [place] 1.020, Urine Protein 15 H, Urine Glucose (UA) Normal, Urine Ketones 5 H, Urine Occult Blood 250 H, Urine Nitrite Negative, Urine Bilirubin Negative, Urine Urobilinogen 1 H, Ur Leukocyte Esterase 100 H, Urine RBC > 100 SEEN, Urine WBC 25-50 SEEN, Ur Squamous Epith Cells 0 SEEN, Urine Bacteria 0 SEEN, Urine Mucus 0 SEEN 03/25/24 05:16: WBC 13.3 H, RBC 5.59, Hgb 15.7, Hct 48.4, MCV 86.6, MCH 28.1, MCHC 32.4, RDW Std Deviation 38.5, RDW Coeff of Jenny 12.1, Plt Count 431, MPV 11.5, Immature Gran % (Auto) 0.600, Neut % (Auto) 70.6 H, Lymph % (Auto) 18.7 L, [place] % (Auto) 8.8, Eos % (Auto) 0.8, Baso % (Auto) 0.5, Absolute Neuts (auto) 9.4 H, Absolute Lymphs (auto) 2.49, Nucleated RBC % 0, Sodium 136, Potassium 4.1, Chloride 102, Carbon Dioxide 28.0, Anion Gap 6, BUN 20 H, Creatinine 1.02, Estim Creat Clear Calc 81.41, Est GFR (MDRD) Af Amer 100, Est GFR (MDRD) Non-Af 83, BUN/Creatinine Ratio 19.6, Glucose 85, Calcium 9.3 Physical Exam Narrative GENERAL: Flat affect and slow to respond HEENT: Atraumatic; normocephalic EYES; Anicteric, Normal Conjunctiva NECK; supple, normal thyroid, RESPIRATORY: Diminished to auscultation CARDIOVASCULAR: Regular S1 S2, GI: soft, normoactive bowel sounds, : No Renal angle tenderness; EXTREMITIES: No edema, no clubbing, MUSCULOSKELETAL: no muscle wasting NEURO: Awake; no lateralizing signs. SKIN: No Rash PSYCH; Flat affect Assessment & Plan Assessment/Plan (1) Dysphagia: PLAN: Plan Patient is a 48-year-old gentleman with history of learning disability who presented with progressive generalized weakness and difficulty swallowing 1. Dysphagia ? To both solids and liquids. Patient has been admitted to regular nursing floor. Patient was kept n.p.o. after midnight started on PPI with consultation placed to both speech therapy as well as GI ? 03/24/2024; Patient underwent modified barium swallow and speech therapy recommended minced and moist discharge/thin liquids under direct supervision. Also recommended for GI consultation which has been placed on admission. Patient is scheduled to undergo EGD ? 03/25/2024 patient underwent EGD the day prior findings and recommendations as below. -Impressions : - Benign-appearing esophageal stenosis. Dilated. Biopsied. - No gross lesions in the stomach. - No gross lesions in the first portion of the duodenum. Recommendations : - [facility]. - Advance diet as tolerated - advance as tolerated to resume previous diet. - Continue present medications. - Await pathology results. - 2. GERD ? Patient is on PPI did continue 3. Generalized osteoarthritis ? Patient is on meloxicam held given his presentation 4. Mild intermittent asthma ? Currently not in exacerbation aerosol treatment as needed 5. Learning disability ? Patient has disability and is cared for by his sister at home 6. Leukocytosis ? No infectious etiology will monitor 7. Depression with anxiety Patient was on Zoloft recently switched to citalopram continue 8. BPH with lower urinary obstructive symptoms -Patient was seen in consultation by Dr Wilson with urology recommended for patient be treated with tamsulosin 9. DVT prophylaxis ? On enoxaparin Time spent in the patient's overall evaluation,decision-making process, review of diagnostic data, adjustment of management, discussion with other providers, nursing nursing and ancillary staff involved in patient's care documentation, 35 Minutes Charges/Coding Visit Charges Inpatient E&M: 52472 [facility] Hosp L2
--- NOTE | 2024-03-25 07:50 | PCM.POSTANE2 ---
Anesthesia Postop Eval I Sum Postop Eval Completion status Anesthesia document: Postop Eval 1 completed: Yes Anesthesia Postop Eval I Summary Anesthesia Postop Eval I Summary: Anesthesia Postop Eval I: Assessment Summary Airway patent Yes 03/24/24 13:25 [email or web address] Spontaneous unlabored Yes 03/24/24 13:25 [email or web address] respirations Mental status Asleep 03/24/24 13:25 [email or web address] nausea No 03/24/24 13:25 [email or web address] Vomiting No 03/24/24 13:25 [email or web address] Anesthesia Postop Eval I: Fluid Summary Crystalloid volume administer 30 03/24/24 13:25 [email or web address] (ml) Colloids volume administered ( ml) Blood Product volume administered (ml) Total IV fluid infused 30 03/24/24 13:25 [email or web address] Anesthesia Postop Eval I: Summary Notes Anesthesia Complication No 03/24/24 13:25 [email or web address] Anesthesia Complication Comment: Post-operative progress note Anesthesia: Postop Eval II Evaluation Mental status: Awake Pain Level: 0 nausea: No Vomiting: No
[2024-03-25 09:12] VITALS: BP 120/74; PULSE 100; RESP 18; TEMP 36.8; O2SAT 98
--- NOTE | 2024-03-25 09:14 | WOUNDNOTE ---
Assisted patient into chair per request. gait steady. callight in reach.
--- NOTE | 2024-03-25 10:36 | DS.PCM_ITS ---
Providers Date of Admission: 03/22/24 Date of Discharge: 03/25/24 Primary Care Physician: Lori Primary Care Phys Consultations 03/22/24 19:53 Consult: Gastroenterology Routine Consulting Provider: Mahad Crabtree Reason for Consult: New Dysphagia to solids and liquids EMERGENT Consult: No Notified: Yes Date Notified: 03/23/24 Time Notified: 06:30 Method of Notification: Text 03/23/24 22:18 Consult: Urology Routine Consulting Provider: Patricio Wilson Reason for Consult: retention EMERGENT Consult: No Notified: Yes Date Notified: 03/24/24 Time Notified: 07:02 Method of Notification: Verbal Reason For Visit: WEAKNESS, DIFFICULTTY SWALLOWING Diagnosis Discharge Diagnosis (1) Dysphagia: Status: Acute Code(s): R13.10 - Dysphagia, unspecified Plan Patient is a 48-year-old gentleman with history of learning disability who presented with progressive generalized weakness and difficulty swallowing 1. Dysphagia ? To both solids and liquids. Patient has been admitted to regular nursing floor. Patient was kept n.p.o. after midnight started on PPI with consultation placed to both speech therapy as well as GI ? 03/24/2024; Patient underwent modified barium swallow and speech therapy recommended minced and moist discharge/thin liquids under direct supervision. Also recommended for GI consultation which has been placed on admission. Patient is scheduled to undergo EGD ? 03/25/2024 patient underwent EGD the day prior findings and recommendations as below. -Impressions : - Benign-appearing esophageal stenosis. Dilated. Biopsied. - No gross lesions in the stomach. - No gross lesions in the first portion of the duodenum. Recommendations : - [facility]. - Advance diet as tolerated - advance as tolerated to resume previous diet. - Continue present medications. - Await pathology results. Patient was discharged with outpatient speech therapy - 2. GERD ? Patient is on PPI did continue 3. Generalized osteoarthritis ? Patient is on meloxicam held given his presentation 4. Mild intermittent asthma ? Currently not in exacerbation aerosol treatment as needed 5. Learning disability ? Patient has disability and is cared for by his sister at home 6. Leukocytosis ? No infectious etiology will monitor 7. Depression with anxiety Patient was on Zoloft recently switched to citalopram continue 8. BPH with lower urinary obstructive symptoms -Patient was seen in consultation by Dr Wilson with urology recommended for patient be treated with tamsulosin 9. DVT prophylaxis ? On enoxaparin Time spent in the patient's overall evaluation,decision-making process, review of diagnostic data, adjustment of management, discussion with other providers, nursing nursing and ancillary staff involved in patient's care documentation, 35 Minutes Medications at Discharge Home Medications cetirizine 10 mg tablet (Allergy Relief (cetirizine)) 10 mg PO DAILY 03/22/24 citalopram 20 mg tablet 20 mg PO DAILY 03/22/24 esomeprazole magnesium 20 mg capsule,delayed release (Nexium 24HR) 20 mg PO BID 03/22/24 fluticasone propionate 50 mcg/actuation nasal spray,suspension 2 spray intranasal DAILY 03/22/24 meloxicam 7.5 mg tablet 7.5 mg PO DAILY 03/22/24 mometasone-formoterol HFA 100 mcg-5 mcg/actuation aerosol inhaler (Dulera) 2 puff inhalation BID 03/22/24 simvastatin 40 mg tablet 40 mg PO DAILY 03/22/24 Physical Exam Narrative GENERAL: Flat affect and slow to respond HEENT: Atraumatic; normocephalic EYES; Anicteric, Normal Conjunctiva NECK; supple, normal thyroid, RESPIRATORY: Diminished to auscultation CARDIOVASCULAR: Regular S1 S2, GI: soft, normoactive bowel sounds, : No Renal angle tenderness; EXTREMITIES: No edema, no clubbing, MUSCULOSKELETAL: no muscle wasting NEURO: Awake; no lateralizing signs. SKIN: No Rash PSYCH; Flat affect Medical Records Data Medical Nutrition Assessment Dietitian: Malnutrition Criteria Met Start: 03/23/24 16:45 Freq: Status: Active Protocol: Document 03/23/24 16:45 RMA (Rec: 03/23/24 16:45 RMA [id number]) Nutrition Malnutrition Evidence of Malnutrition Exists Yes Malnutrition (severe): Acute Illness/Injury Evidenced By Suboptimal Energy Intake ( Severe),Weight Loss (Severe) Intake Problem Inadequate Oral Intake Etiology related to swallowing difficulty and inadequate oral intake Signs/Symptoms as evidenced by ~8% unintentional weight loss Status Active Problem Clinical Problem Acute Disease or Injury Related Malnutrition Etiology severe protein-calorie malnutrition in the context of acute condition related to swallowing difficulty and inadequate oral intake Signs/Symptoms as evidenced by ~8% unintentional weight loss x 2- 3 months and PO meeting less than 50% estimated nutrition needs x 2 weeks Status Active Problem Recommendation Dietitian Recommendations/Changes Continue regular diet with consistency/texture as per DANCE HISTORIAN . Will d/c ensure plus HP w/ medpass per pt preference. Will add 240mL ovalles ensure clear w/ breakfast for tolerance. Add ONS as pt willing once swallowing ability and oral intake better established. Weight / BMI Weight Weight: 77.11 kg Body Mass Index (BMI) 30.1 ABG / Lab / Microbiology Data 03/25/24 05:16 03/25/24 05:16 Laboratory: Laboratory Results - last 24 hr 03/25/24 04:45: Urine Color Luisa, Urine Clarity Sl. Cloudy, Urine pH 5.0, Ur Specific [place] 1.020, Urine Protein 15 H, Urine Glucose (UA) Normal, Urine Ketones 5 H, Urine Occult Blood 250 H, Urine Nitrite Negative, Urine Bilirubin Negative, Urine Urobilinogen 1 H, Ur Leukocyte Esterase 100 H, Urine RBC > 100 SEEN, Urine WBC 25-50 SEEN, Ur Squamous Epith Cells 0 SEEN, Urine Bacteria 0 SEEN, Urine Mucus 0 SEEN 03/25/24 05:16: WBC 13.3 H, RBC 5.59, Hgb 15.7, Hct 48.4, MCV 86.6, MCH 28.1, MCHC 32.4, RDW Std Deviation 38.5, RDW Coeff of Jenny 12.1, Plt Count 431, MPV 11.5, Immature Gran % (Auto) 0.600, Neut % (Auto) 70.6 H, Lymph % (Auto) 18.7 L, [place] % (Auto) 8.8, Eos % (Auto) 0.8, Baso % (Auto) 0.5, Absolute Neuts (auto) 9.4 H, Absolute Lymphs (auto) 2.49, Nucleated RBC % 0, Sodium 136, Potassium 4.1, Chloride 102, Carbon Dioxide 28.0, Anion Gap 6, BUN 20 H, Creatinine 1.02, Estim Creat Clear Calc 81.41, Est GFR (MDRD) Af Amer 100, Est GFR (MDRD) Non-Af 83, BUN/Creatinine Ratio 19.6, Glucose 85, Calcium 9.3 D/C Instructions Discharge Diet: Soft diet and Swallowing Precautions Discharge Activity: Return to Normal Activity Call your doctor if you observe: Fever of 101 or Higher, Shortness of breath, Fainting spells and Chest pain DC O2, CPAP, BIPAP Needs Additional Home O2 Discharge instructions: No DC home with Oxygen: No Meaningful Use Info Meaningful Use Meaningful Use Diagnoses (Choose all that apply): None applicable Ischemic Stroke Statin Dosing Therapy Reference: STATIN DOSE THERAPY REFERENCE: * Patients > 75 years receive moderate or high dose statin therapy. * Patients 75 years or YOUNGER should receive HIGH intensity statin dose unless contraindicated. You will be required to document reason for non-treatment if statin daily dose does not meet guidelines. HIGH DOSE STATIN THERAPY DAILY Atorvastatin > than or = to 40 mg Rosuvastatin > than or = to 20 mg Amlodipine + Atorvastatin > than or = to 2.5/40 mg Ezetimibe + Simvastatin 10/80 mg Simvastatin 80mg Discharge Plan Admission Admit Date/Time: 03/22/24 18:00 Attending Provider: Moi Cummins Primary Care Provider: Care Physician,No Primary Consulting Providers: Silvia Major; Mahad Crabtree; Patricio Wilson Discharge Orders/Prescriptions Prescriptions: Continued cetirizine [Allergy Relief (cetirizine)] 10 mg tablet 10 mg PO DAILY simvastatin 40 mg tablet 40 mg PO DAILY meloxicam 7.5 mg tablet 7.5 mg PO DAILY citalopram 20 mg tablet 20 mg PO DAILY fluticasone propionate 50 mcg/actuation spray,suspension 2 spray INTRANASAL DAILY esomeprazole magnesium [Nexium 24HR] 20 mg capsule,delayed release(DR/EC) 20 mg PO BID Dulera 100-5 mcg/actuation HFA aerosol inhaler 2 puff INHALATION BID Discontinued methylprednisolone 4 mg tablets,dose pack 4 mg PO DAILY Referrals / Follow Up: Care Physician,No Primary [Primary Care Provider] - Disposition Disposition (needs filled in before D/C Order can be placed): Home, Self Care Charges/Coding Visit Charges Inpatient E&M: 18024 Disch Hosp >30min
--- NOTE | 2024-03-25 10:47 | CASEMGMT ---
ANTONIO LÓPEZ spoke with ST who is recommending outpt [facility]. ANTONIO LÓPEZ into pt room, pt sitting up in chair. ANTONIO LÓPEZ spoke to pt regarding outpt ST, pt looked at ANTONIO LÓPEZ but did not speak. Pt sister in room and she responded to pt questions. Pt will be going to her home in [place] until she feels pt can live alone. She states pt has a PCP appt on Thursday of next week, she would like to set up pt therapy on her own. Provided her with the rx for ST. She denied further needs for pt. Pt did not answer ANTONIO LÓPEZ when asked if he had any further needs. Pt to dc today.
[2024-03-25] MEDS: Pantoprazole Sodium 40 MG in 0.9% Normal Saline (100mL MB+) 100 ML 330 MG IV (10:57)
[2024-03-25] MEDS: Fluticasone 0.05% 1 SPRAY NASAL.SRY 2 SPRAY NASAL (10:58)
[2024-03-25] MEDS: Citalopram 20 MG Tablet PO (10:58)
[2024-03-25] MEDS: Enoxaparin 40 MG/0.4 ML Syringe SC (10:58)
--- NOTE | 2024-03-25 12:48 | CASEMGMT ---
Social Work SW received referral from RN that pt's sister is requesting pt complete HCPOA. SW met with pt and sister and discussed HCPOA. At this time, this SW does not feel pt is completely understanding and pt is uncertain who he would choose as medical decision maker. SW provided pt with written information on Advance Directives and AD rack card and explained to sister that pt can make an appointment as an outpatient to complete AD at a later time. SIMONE Cardenas
[2024-03-25 16:00] VITALS: BP 119/83; PULSE 89; RESP 18; TEMP 37.2; O2SAT 99
--- NOTE | 2024-03-25 16:40 | NURSING ---
This RN contacted Dr Cummins regarding pt being unable to void after salvador removal. [place] was removed at 1130, and at 1600, pt only had 181ml on bladder scan. Per Dr Cummins, OK to DC home since there is minimal urine in the bladder. Dr Cummins also said that we could ask urology what their recommendations are. Dr Wilson was contacted and said that the pt needed more time for voiding trials and no catheter was recommended. Pt and pt's sister agreeable to DC home before pt able to void
[2024-03-27 01:06] LABS: Vitamin B1, Thiamine 155.3 nmol/L (66.5-200.0)
== END 2024-03-25 16:35 | disposition home or self-care (01) | DRG 254 ==
LOC: ED 16:36 → MS3 18:10
PROVIDERS: Internal Medicine Gastroenterology; Admitting Provider Internal Medicine; Emergency Provider Emergency Medicine; Visit Provider Internal Medicine
PROC: 0DJ08ZZ Inspection of Upper Intestinal Tract, Via Natural or Artificial Opening Endoscopic (ICD-10-PCS; CPT 43235; principal; 2024-03-24 12:25)
DX: R13.10 Dysphagia, unspecified (principal); E43 Unspecified severe protein-calorie malnutrition; J45.20 Mild intermittent asthma, uncomplicated; Z68.30 Body mass index [BMI] 30.0-30.9, adult; K22.2 Esophageal obstruction; E78.00 Pure hypercholesterolemia, unspecified; K21.9 Gastro-esophageal reflux disease without esophagitis; F41.8 Other specified anxiety disorders; D72.829 Elevated white blood cell count, unspecified; M19.90 Unspecified osteoarthritis, unspecified site; Z79.51 Long term (current) use of inhaled steroids; F81.9 Developmental disorder of scholastic skills, unspecified; N40.1 Benign prostatic hyperplasia with lower urinary tract symptoms; N13.8 Other obstructive and reflux uropathy; R53.1 Weakness; R39.11 Hesitancy of micturition; Z79.1 Long term (current) use of non-steroidal anti-inflammatories (NSAID)
CPT/HCPCS: 36415; 70450; 71046; 74230; 80048; 80053; 81001; 82607; 82728; 82746; 83540; 83550; 83690; 83735; 84100; 84425; 84443; 85025; 88305; 92526; 92610; 92611; 93005; 94640; 94668; 97110; 97116; 97162; 97166; 97530; 97802; 99283; J7030; J7040; A4216; C1769; J2405